=== PATIENT | female | born 1965 | race Caucasian/White ===

== ENCOUNTER 2017-02-11 20:16 | Inpatient (IN) | payer BC ==
[~2017-02-11] VITALS: Ht 180.3 cm; Wt 104.0 kg
[~2017-02-11 20:16] MED LIST: ALEVE220 MG PO; ATENOLOL50 MG PO; BACTRIM DS1 TAB PO; BELVIQ PO; CINNAMON500 M1 PO; DOCUSATE SODIU250 MG PO; GEMFIBROZIL600 MG PO; HUMALOG100 MG/ML SC; HUMULIN 70/30; HYDROMORPHONE HC2 MG PO; INVOKANA300 MG PO; LANTUS SOL100 UNITS/ SC; LEVOTHYROXINE100 MCG PO; LIOTHYRONINE SO5 MCG PO; LOSARTAN POTAS100 MG PO; MELATONIN1 M1; METFORMIN HCL1000 MG PO; METFORMIN HCL500 MG PO; NORCO1 TA1 PO; PERCOCET1 TA4 PO; PRAVASTATIN SOD40 MG; PROGESTERONE200 MG; RANITIDINE HCL150 MG PO; REGLAN5 MG PO; SUPER B-COMPLEX; TOUJEO SOL300 UNIT/M SC; TRESIBA FL100 UNIT/M SC; TYLENOL ARTHRI650 MG PO; VICTOZA18 MG/3 ML; VITAMIN D-35000 UNIT PO; ZOFRAN ODT4 MG PO; ZOFRAN4 MG PO; [UNRECOGNIZED DRUG - OTHER] PO; [UNRECOGNIZED DRUG - OTHER] TOP
--- NOTE | 2017-02-11 21:25 | DIAGNOSTIC IMAGING REPORT ---
PROCEDURE: XR CHEST 1 VIEW INDICATION: SHORTNESS OF BREATH TECHNIQUE: Portable AP view 09:02 p.m. COMPARISON: Chest x-ray 03/22/2015. FINDINGS: Lungs are clear. Heart and mediastinum are normal. Thorax is normal. No significant interval change. IMPRESSION: 1. Negative chest.
--- NOTE | 2017-02-11 23:15 | ED CLINICAL REPORT ---
Clinical Report - Physicians/Mid Levels [facility] [address] [place] [address] 02/11/2017 20:17 Patient: DAVID HUMPHREYS Time Seen: 2029; initial patient contact. Arrived- By private vehicle. Historian- patient and family. HISTORY OF PRESENT ILLNESS Chief Complaint: DYSPNEA. This started past 3 - 4 days and is still present (worsening). It was gradual in onset and has been constant but is not gone now. The dyspnea is severe and is worsened by exertion and is improved by rest. The patient has had a cough and chills. No chest pain or discomfort, calf pain or foot swelling. (episode of nausea and vomiting. reports having lower back pain 2 days ago following episode of coughing + nausea/vomiting. no numbness, weakness, or tingling. No saddle anesthesia, urinary retention, incontinence. also with sore throat with this illness. was given abx for "laryngitis" but can not remember the abx name.). Similar symptoms previously: None. Recent medical care: The patient was seen recently in a clinic. REVIEW OF SYSTEMS The patient has had nausea and vomiting. All systems otherwise negative, except as recorded above. PAST HISTORY See nurses notes. Medications: Tresbia 76 units daily. Victoza 1.8 mg daily. Humalog 6-20 units when eating. Cinnamon 1000 mcg daily. Vitamin D3 1000 IU daily. Qunol 100 mg daily. Biotin 1000 mcg daily. Stress B daily. Methyl guard. Tylenol Arthritis 650 mg QID. Metoclopramide 5 mg BID. C-Biest cream 5 mg/ml daily. Progesterone 200 mg daily. Gemfibrozil 600 mg BId. Pravastatin 40 mg daily. Atenolol 50 mg BID. Losartan 100 mg daily. Belviq 10 mg daily. Metformin ER 500 mg TID. Invokana 300 mg daily. Liothyronine 5 mcg BID. Levothyroxine 125 mcg daily. Belviq Oral. Tresbia. MetFORMIN HCl Oral. Bydureon Subcutaneous. NovoLOG Subcutaneous. Allergies: No Known Drug Allergy. SOCIAL HISTORY Smoker- current status unknown. No alcohol use or drug use. No recent travel. Is a local resident. ADDITIONAL NOTES The nursing notes have been reviewed. PHYSICAL EXAM Vital Signs: 02/11/2017 20:23 BP: 157/75. HR: 114. RR: 39. O2 saturation: 100%. Temp: 98.4 F. FLACC pain scale: 10/10. Hypertensive. Tachycardic. Oxygen saturation normal. Appearance: Alert. Lethargic. Patient in moderate distress. Eyes: Pupils equal, round and reactive to light. Eyes normal inspection. ENT: Ears normal. Nose normal. Pharynx normal. Uvula midline. (dry mucus membranes). Neck: Normal inspection. No jugular venous distention. Neck supple. CVS: Tachycardia. Heart sounds normal. Pulses normal. Respiratory: No respiratory distress. Breath sounds normal. No wheezes, stridor, rales or rhonchi. Abdomen: Soft and nontender. No organomegaly. Skin: Skin warm and dry. Normal skin color. No rash. Normal skin turgor. Extremities: Extremities exhibit normal ROM. No lower extremity edema. Neuro: Oriented X 3. No motor deficit. No sensory deficit. (sleepy). LABS, X-RAYS, AND EKG EKG: No acute ischemia. Regular narrow-complex tachycardia (105). Sinus tachycardia. Normal P waves. Normal MARCO A. Normal QRS complex. Normal axis. Non-specific ST segment / T wave abnormalities. sinus tach. The study has been interpreted contemporaneously. The study has been independently viewed by me. Artifact present. Chest X-ray: (PROCEDURE: XR CHEST 1 VIEW INDICATION: SHORTNESS OF BREATH TECHNIQUE: Portable AP view 09:02 p.m. COMPARISON: Chest x-ray 03/22/2015. FINDINGS: Lungs are clear. Heart and mediastinum are normal. Thorax is normal. No significant interval change. IMPRESSION: 1. Negative chest.). Views: AP (portable). The X-rays were independently viewed by me and interpreted by the radiologist. The X-rays were discussed with the radiologist (via pacs). Laboratory Tests: UA-Culture if indicated: (MIGDALIA: 02/11/2017 21:00) ( MsgRcvd 02/11/2017 22:10) Final results Test Result Flag Units (Reference) URINE COLOR YELLOW URINE APPEARANCE CLEAR URINE GLUCOSE 3+ (NEGATIVE) URINE BILIRUBIN NEGATIVE (NEGATIVE) URINE KETONE 2+ (NEGATIVE) URINE SPECIFIC GRAVITY 1.020 (1.010-1.030) URINE PH 5.0 (5.0-8.0) URINE PROTEIN TRACE (NEGATIVE) URINE UROBILINOGEN 0.2 EU/dL (0.2-1.0) URINE NITRITE NEGATIVE (NEGATIVE) URINE BLOOD TRACE-LYSED (NEGATIVE) URINE LEUK ESTERASE NEGATIVEA (NEGATIVE) URINE RBC 0-1 rbc/hpf (0-1) CATH1+ AMORPHOUSTRANSITIONAL EPITHELIAL CELLS 0-1/HPF URINE WBC 0-1 wbc/hpf (0-1) URINE EPITHELIAL CELLS NONE SEEN EPI/hpf (0-5) URINE BACTERIA FEW (1+) (NONE SEEN) URINE COMMENT CULT NOT INDICATED URINE CULTURES ARE SET-UP BASED ON THE FOLLOWING CRITERIA:POSITIVE NITRITEPOSITIVE LEUKOCYTE ESTERASEGREATER THAN 10 WHITE BLOOD CELLSMODERATE (2+) OR GREATER BACTERIA Urine: (MIGDALIA: 02/11/2017 21:00) ( [facility] 02/11/2017 21:38) Final results Test Result Flag Units (Reference) URINE NEGATIVE ESR: (MIGDALIA: 02/11/2017 21:00) ( [facility] 02/11/2017 22:57) Final results Test Result Flag Units (Reference) SED RATE WESTERGREN 4 mm/hr (0-20) DIFFERENTIAL-MANUAL: (MIGDALIA: 02/11/2017 21:00) ( [facility] 02/11/2017 21:51) Final results Test Result Flag Units (Reference) WHITE BLOOD COUNT 29.0 *H K/uL (4.5-11.5) CRITICAL RESULTS CALLEDCalled to JACOBY 02/11/17 2136Were 2 patient identifiers used? YESWas the result read back? YES RED BLOOD COUNT 5.03 M/uL (4.00-5.20) HEMOGLOBIN 15.0 gm/dL (12.0-16.0) HEMATOCRIT 47.3 H % (36.0-46.0) MEAN CELL VOLUME 94 fL (80-100) MEAN CORPUSCULAR HGB 30 pg (26-34) MEAN CORPUSCULAR HGB CONC 32 g/dL (31-37) RED CELL DISTRIBUTION WIDTH 13.4 % (11.6-14.8) PLATELET COUNT 462 H K/uL (150-400) POLY % 68 % (50-75) BAND % 16 H % (0-8) LYMPH 7 L % (25-40) MONO 6 % (3-14) EOSINOPHIL % 0 % (0-4) BASOPHIL % 0 % (0-2) METAMYELOCYTE % 3 H % (0-1) MYELOCYTE 0 % (0-1) OTHER CELL TYPE 0 RBC MORPHOLOGY NORMAL RBC POP PT with INR: (MIGDALIA: 02/11/2017 21:00) ( [facility]39[facility] Final results Test Result Flag Units (Reference) INR 1.3 H (0.8-1.2) Low Intensity Therapy: INR 1.5-2.0 PT range 18.5-23.1Mod.Intensity Therapy: INR 2.0-3.0 PT range 23.1-31.5High Intensity Therapy: INR 2.5-3.5 PT range 27.4-35.5High Intensity Therapy 2: INR 3.0-4.0 PT range 31.5-39.3 D-DIMER QUANTITATIVE 0.72 H ug/mLFEU (0.27-0.52) The primary value of this quantitative assay relates toits negative predictive value (i.e. exclusion) of pulmonaryembolism/deep vein thrombosis/DIC.Elevated levels of d-dimer may also occur with:, age, cancer, inflammation, liver disease,post-op, infection, hematoma, coronary disease, peripheralarteriopathy, bleeding disorders and thrombolytic treatment.Results should be correlated with other clinical andradiological data.Testing Methodology: Latex Immunoassay Magnesium: (MIGDALIA: 02/11/2017 21:00) ( MsgRcvd 02/11/2017 23:19) Final results Test Result Flag Units (Reference) MAGNESIUM 2.8 H mg/dL (1.8-2.4) Salicylate Level: (MIGDALIA: 02/11/2017 21:00) ( [facility]/11[facility] 22:56) Final results Test Result Flag Units (Reference) SALICYLATE 6.5 mg/dL (2.8-20) [id number]: (MIGDALIA: 02/11/2017 21:00) ( [facility] 02/11/2017 22:56) Final results Test Result Flag Units (Reference) C-REACTIVE PROTEIN 1.3 H mg/dL (0.0-0.9) [id number]: (MIGDALIA: 02/11/2017 21:00) ( [facility] 02/11/2017 22:55) Final results Test Result Flag Units (Reference) FREE T4 (FREE THYROXINE) 1.11 ng/dL (0.78-4.13) Lactate, Serum: (MIGDALIA: 02/11/2017 21:00) ( [facility] 02/11/2017 22:06) Final results Test Result Flag Units (Reference) LACTIC ACID 5.4 H mmol/L (0.4-2.0) CRITICAL RESULTS CALLEDCalled to [facility] RN 02/11/172204Were 2 patient identifiers used? YWas the result read back? Y CMP: (MIGDALIA: 02/11/2017 21:00) ( [facility] 02/11/2017 22:08) Final results Test Result Flag Units (Reference) GLUCOSE 728 *H mg/dL (70-110) CRITICAL RESULTS CALLEDCalled to [facility] ED RN 02/11/177Were 2 patient identifiers used? YWas the result read back? Y BUN 68 H mg/dL (7-18) CREATININE 2.2 H mg/dL (0.6-1.3) Estimated GFR 25.21 mL/min Estimated GFR- 30.56 mL/min Note: Persistent reduction over 3 months in eGFR<60 mL/min/1.73 m2 defines CKD. Patients with eGFR values>=60 mL/min/1.73 m2 may also have CKD if evidence ofpersistent proteinuria. Additional information may be foundat www.kidney.org. SODIUM 135 L mmol/L (136-145) POTASSIUM 5.6 H mmol/L (3.5-5.1) CHLORIDE 92 L mmol/L (98-107) CARBON DIOXIDE 4 *L mmol/L (21-32) CRITICAL RESULTS CALLEDCalled to CARIN QUEEN RN 02/11/17 2208Were 2 patient identifiers used? YWas the result read back? Y CALCIUM 9.6 mg/dL (8.5-10.1) TOTAL PROTEIN 8.0 g/dL (6.4-8.2) ALBUMIN 3.8 g/dL (3.3-5.0) BILIRUBIN, TOTAL 0.6 mg/dL (0.0-1.0) ALKALINE PHOSPHATASE 148 H U/L (46-116) AST (SGOT) 35 U/L (15-37) ALT (SGPT) 48 U/L (12-78) TROPONIN I <0.05 ng/mL (0.00-1.5) TROPONIN REFERENCE RANGE:<0.1 NEGATIVE0.1-1.5 INDETERMINANT>1.5 POSITIVE THYROID STIMULATING HORMONE 0.001 L uIU/mL (0.34-3.74) ABG: (MIGDALIA: 02/11/2017 22:10) ( MsgRcvd 02/11/2017 22:29) Final results Test Result Flag Units (Reference) FIO2 21 % (20-101) ABG MODE OF DELIVERY RA MODIFIED CECILIO TEST POSITIVE? YES ABG RESP RATE SETTINGS 40 /MIN ARTERIAL BLOOD GAS SITE RR ARTERIAL BLOOD GAS pH 6.88 *L (7.35-7.45) ABG PCO2 12.1 *L mmHg (35-45) ABG PO2 134.0 H mmHg (80.0-100.0) ABG BASE EXCESS -29.0 *L mmol/L (-6.0--6.0) ABG HCO3 2.3 *L mmol/L (20.0-26.0) ABG TCO2 2.6 *L mmol/L (24.0-30.0) ABG IzGbV3s 0.0 L mmHg (7.0-14.0) *NOTE: Normal rangeis based on aFIO2 of 21% ABG SAT O2 96.1 % (95.1-100.0) ABG TOTAL HEMOGLOBIN 13.9 g/dL (12.0-16.0) ABG O2 HEMOGLOBIN 95.1 % (95.0-100.0) ABG CARBOXYHEMOGLOBIN 0.3 L % (0.5-1.5) ABG METHEMOGLOBIN 0.7 % (0.4-1.5) ABG RHEMOGLOBIN 3.9 % . PROGRESS AND PROCEDURES Course of Care: the patient is a pleasant 51-year-old female presenting for evaluation of shortness of breath. Patient appears to be extremely sleepy on examination. Patient has a history of diabetes as well as thyroid problems. Patient also reason he started on antibiotics for presumed bacterial infection. At this time differential diagnosis includes pneumonia, urinary tract infection, diabetic ketoacidosis, or thyroid abnormality. Patient also could have significant Robards disturbances from acute metabolic abnormality. Patient will be given IV fluids as well as laboratory studies for a vaginal patient's symptoms. Ordered a urinalysis, TSH, d-dimer, chest x-ray, and other laboratory studies. Patient's workup was remarkable for the findings above. Calculated anion gap and 45. Patient also with severe lactic acidosis. ABG has been ordered. Chest x-ray does not show any signs of acute pneumonia. Urinalysis is also negative. Patient did have a significant abnormality with her TSH. I discussion with the patient's family in regards to the thyroid level. Patient is noted to have a hypothyroid condition is being treated with thyroid medication. 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 We'll monitor closely. Did consider thyroid storm however because of the patient's other electrolyte abnormalities and DKA, would be concerned for the DKA causing the patient's abnormalities at this point. We'll hold patient's thyroid medicationsat this point in time and recheck patient's TSH. Because the patient will be obtaining a IV fluid bolus as well asinsulin bolus with insulin drip, patient was given 60 mg of by mouth potassium for replacement of overall hypokalemia because of the patient's DKA. Patient otherwise noted to have no signs of hypokalemia on EKG. Patient was a slightly elevated and her potassium at 5.6 however do not anticipate any problems with by mouth potassium as the patient will be sore the potassium as needed in addition, the patient is also physiologically hypokalemic and will need potassium replacementonce the insulin has been started. This will likelyreduce the need for IV potassium which could be potentially painful and irritated the patient'sIV site. Discussed with the patient and the family there workup. The emergency department regarding diagnosis and plan of care. Discussed case with the hospitalist who is agreeable to the treatment plan. No further recommendations made. No specific source of infection identified on workup here in emergency department. We'll defer to hospitalist forany further recommendations or treatment. In discussion with the hospitalist, decided to start the patient on antibiotics. At this point in time, the benefits outweigh the risks at this time. patient otherwise without anyfocal signs on my examination. Patient continues to be alert and oriented 3 however does continue to be sleepy. Vital signs of improved while here in the emergency department. No other acute Abnormalities noted. In regards to the patient's back pain, llikely association with the patient's nausea and vomiting episode. Patient likely with lumbar strain. ESR and CRP have been ordered. Patient's sedimentation rate is noted to be normal. CRP is only slightly elevated however it is not more than 2 times upper limit of normal. no concern for infectious etiology of the patient's back At this time and will continue to monitor as an inpatient. Critical care performed (70 minutes). Time is exclusive of separately billable procedures. Time includes: direct patient care, patient reassessment, coordination of patient care, interpretation of data (laboratory data, arterial blood gases and chest xrays), review of patient's medical records, medical consultation, family consultation regarding treatment decisions and documentation of patient care. Disposition: Admitted to the Critical Care Unit. CLINICAL IMPRESSION diabetic ketoacidosis, acute lactic acidosis, acute hyperthyroidism, acute acute kidney injury Acute lower back pain. (Electronically signed by Jj Devlin Dr. 02/15/2017 17:10)
--- NOTE | 2017-02-11 23:15 | ED ORDER SUMMARY ---
..... Patient: DAVID HUMPHREYS OrderSheet [facility] VisitID: [id number] [place] [address] 51y, F Registration Date/Time: 02/11/2017 ORDER SHEET Weight: 95.7 kg (stated) Allergies: No Known Drug Allergy GENERAL ORDERS: Chest 1V Urgent (20:35 02/11/2017 Araceli Cedillo) (Ack 20:39 CHagerty ER Special Services Agent) (21:22 MCampbell) (21:22 MCook R.N.) Software Development Intern (Continuous) (Respiratory Distress) (20:35 02/11/2017 Araceli Cedillo) (20:47 MCook R.N.) (20:51 TBowen R.N.) CBC w Diff Urgent (20:36 02/11/2017 Araceli Cedillo) (Ack 20:39 CHagerty [facility] Special Services Agent) (20:51 MCook R.N.) CMP Urgent (20:36 02/11/2017 Araceli Cedillo) (Ack 20:39 [facility] Special Services Agent) (20:51 MCook R.N.) UA-Culture if indicated Urgent (20:36 02/11/2017 Araceli Cedillo) (Ack 20:39 [facility] Special Services Agent) (21:02 DDean R.N.) PT with INR Urgent (20:36 02/11/2017 Araceli Cedillo) (Ack 20:39 [facility] Special Services Agent) (20:51 MCook R.N.) D-Dimer Urgent (20:36 02/11/2017 Araceli Cedillo) (Ack 20:39 CHagerty [facility] Special Services Agent) (20:51 MCook R.N.) Troponin-I Urgent (20:36 02/11/2017 Araceli Cedillo) (Ack 20:39 CHagerty [facility] Special Services Agent) (20:51 MCook R.N.) Lactate, Serum Urgent (20:36 02/11/2017 Araceli Cedillo) (Ack 20:39 CHagerty [facility] Special Services Agent) (21:14 MCook R.N.) TSH Urgent (20:36 02/11/2017 Araceli Cedillo) (Ack 20:39 CH[facility] Special Services Agent) (20:51 MCook R.N.) Urine Urgent (20:36 02/11/2017 Araceli Cedillo) (Ack 20:39 CHagerty [facility] Special Services Agent) (21:02 DDean R.N.) Pulse oximeter (20:36 02/11/2017 Araceli Cedillo) (20:47 MCook R.N.) (20:51 TBowen R.N.) EKG - ER Stat (20:36 02/11/2017 Araceli Cedillo) (Ack 20:39 [facility] Special Services Agent) (20:47 MCook R.N.) (20:48 LMuller) Blood Culture (Yes) (patient does not recall) Urgent (21:38 02/11/2017 Araceli Cedillo) (Ack 21:40 [facility] Special Services Agent) (22:17 MCook R.N.) Blood Culture (No) (N/A) Urgent (22:00 02/11/2017 MCook R.NAshley verbal order read back to Araceli Cedillo) (22:01 MCook R.N.) (Cancelled: Duplicate Order22:01 MCook R.N.) Verbal order read back and verified ABG (G) Urgent (22:10 02/11/2017 Araceli Cedillo) (Ack 22:18 [facility] Special Services Agent) (22:36 [facility] Special Services Agent) FT4(Free T4) Urgent (22:27 02/11/2017 Araceli Cedillo) (Ack 22:36 [facility] Special Services Agent) (22:36 [facility] Special Services Agent) CRP Urgent (22:28 02/11/2017 Araceli Cedillo) (Ack 22:36 [facility] Special Services Agent) (22:36 [facility] Special Services Agent) ESR Urgent (22:28 02/11/2017 Araceli Cedillo) (Ack 22:36 [facility] Special Services Agent) (22:36 [facility] Special Services Agent) Salicylate Level Urgent (22:35 02/11/2017 Araceli Cedillo) (Ack 22:36 [facility] Special Services Agent) (23:29 [facility] Special Services Agent) - (T3) (22:56 02/11/2017 Araceli Cedillo) (23:29 [facility] -- (serum phosphate) (22:57 02/11/2017 Araceli Cedillo) (23:29 [facility] Magnesium Urgent (22:57 02/11/2017 Araceli Cedillo) (23:27 [facility] ER Special Services Agent) PCT (Procalcitonin) Urgent (22:58 02/11/2017 Araceli Cedillo) (23:27 [facility]) MEDICATION ORDERS: Potassium Chloride PO 60 meq (NOW) (22:32 02/11/2017 Araceli Cedillo) (23:47 MCook R.N.) Famotidine PO 20 mg (NOW) (23:18 02/11/2017 Della R.NAshley verbal order read back to Araceli Cedillo) (23:19 Slickk R.N.) IV FLUIDS: IV NS : initial bolus 1000 mL (1000 mL/hr), then none - for X1 (NOW) (20:35 02/11/2017 Araceli Cedillo) (21:14 MCook R.N.) Insulin Reg Drip IV : initial bolus 8 units, then 8 units/hr for 8h (HIGH ALERT MEDICATION, NOW) (22:54 02/11/2017 Araceli Cedillo) (23:49 MCmorrok R.N.) IV NS : initial bolus 1000 mL (1000 mL/hr), then none - for X1 (NOW) (22:56 02/11/2017 Araceli Cedillo) (23:49 Slickk R.N.) Zofran IV 4 mg (NOW) (23:18 02/11/2017 Della R.N. verbal order read back to Araceli Cedillo) (23:19 Slickk R.N.) Morphine IV 4 mg (NOW) (01:08 02/12/2017 Della RAshleyNAshley verbal order read back to Araceli Cedillo) (1:21 MCook R.N.) Zofran IV 4 mg (NOW) (01:09 02/12/2017 Della R.NAshley verbal order read back to Araceli Cedillo) (1:22 MCook R.N.) Sodium Bicarbonate IV 100 meq (in 400 mls of D5W) (01:22 02/12/2017 Della Clarke verbal order read back to Aure LEYVA) (1:35 Della Clarke) Verbal order read back and verified Levaquin IV 750 mg/150 mL (NOW) (01:23 02/12/2017 Della Clarke verbal order read back to Aure LEYVA) (1:24 Della Clarke) Verbal order read back and verified ORDER SHEET NOTES: [Electronically signed by Ji Elizabeth R.N. (02:02/12/2017)] [Electronically signed by Jj Devlin Dr. (17:10 02/15/2017)] [Electronically locked/signed by Ji Elizabeth R.N. (02:02/12/2017)]
--- NOTE | 2017-02-11 23:15 | ED NURSING NOTES ---
Clinical Report - Nurses [facility] [address] [place] [address] 02/11/2017 20:17 Patient: DAVID HUMPHREYS TRIAGE Triage time 20:Feb 11 2017. Acuity: LEVEL 3. Chief Complaint: SHORTNESS OF BREATH and DIFFICULTY BREATHING. SEPSIS SCREEN: Sepsis Screen: heart rate greater than 90, respiratory rate greater than 20 and acute mental status change. --20:28 Kevin Obregon R.N. 20:23 02/11/17. BP: 157/75. HR: 114. RR: 39. O2 saturation: 100% on room air. Temp: 98.4 F. FLACC pain scale: 10/10. --20:28 Kevin Obregon R.N. <<STRICKEN ENTRY-- Weight: 81.6 kg estimated. Height/Length: 70 inches Estimated. BMI: 25.8. --END STRIKE>> Correction --20:23 Kevin Obregon R.N.. Weight: 95.7 kg stated. --00:00 Kevin Obregon R.N.. Height/Length: 70 inches Estimated. BMI: 30.3. --02:01 Ji Elizabeth R.N. Medications NovoLOG Subcutaneous. --20:25 Kevin Obregon R.N. Bydureon Subcutaneous. --20:25 Kevin Obregon R.N. MetFORMIN HCl Oral. --20:25 Kevin Obregon R.N. Tresbia. --20:25 Kevin Obregon R.N. Belviq Oral. --21:24 Kevin Obregon R.N. Levothyroxine 125 mcg daily. --21:26 Kevin Obregon R.N. Liothyronine 5 mcg BID. --21:26 Kevin Obregon R.N. Invokana 300 mg daily. --21:27 Kevin Obregon R.N. Metformin ER 500 mg TID. --21:27 Kevin Obregon R.N. Belviq 10 mg daily. --21: Kevin Obregon R.N. Losartan 100 mg daily. --21: Kevin Obregon R.N. Atenolol 50 mg BID. --21: Kevin Obregon R.N. Pravastatin 40 mg daily. --21: Kevin Obregon R.N. Gemfibrozil 600 mg BId. --21: Kevin Obregon R.N. Progesterone 200 mg daily. --21: Kevin Obregon R.N. C-Biest cream 5 mg/ml daily. --21: Kevin Obregon R.N. Metoclopramide 5 mg BID. --21: Kevin Obregon R.N. Tylenol Arthritis 650 mg QID. --21: Kevin Obregon R.N. Methyl guard. --21: Kevin Obregon R.N. Stress B daily. --21: Kevin Obregon R.N. Biotin 1000 mcg daily. --21: Kevin Obregon R.N. Qunol 100 mg daily. --21: Kevin Obregon R.N. Vitamin D3 1000 IU daily. --21: Kevin Obregon R.N. Cinnamon 1000 mcg daily. --21: Kevin Obregon R.N. Humalog 6-20 units when eating. --21: Kevin Obregon R.N. Victoza 1.8 mg daily. --21: Kevin Obregon R.N. Tresbia 76 units daily. --21:29 Kevin Obregon R.N. Allergies No Known Drug Allergy. --20:25 Kevin Obregon R.N. History Arrived by private vehicle. Historian: family. Accompanied by family. This started today. ( Pt has been on antibiotics for bacterial laryngitis per PCP. Pt presents today with dyspnea and reported back pain.). PAST MEDICAL HX: Diabetes mellitus. Hypertension. No history of asthma, chronic obstructive pulmonary disease or congestive heart failure. Immunizations: up-to-date. Denies current : uterine ablation. SURGERY HX: ( uterine ablation). SOCIAL HX: Heavy tobacco smoker- less than 1 pack per day. No infectious disease exposure. FALL RISK ASSESSMENT: Fall risk assessment completed. No fall risk identified. NUTRITIONAL RISK ASSESSMENT: The nutritional risk assessment revealed no deficiencies. FUNCTIONAL ASSESSMENT: Functional assessment: no impairments noted. LEARNING NEEDS ASSESSMENT: The learning needs assessment revealed no barriers. SKIN INTEGRITY ASSESSMENT: Skin integrity risk assessment completed. No skin integrity risk identified. --20:28 Kevin Obregon R.N. PROBLEMS: Cellulitis. Abscess. Diabetes Mellitus. Hypothyroidism. Hypertension. Hypercholesterolemia. --20:26 Kevin Obregon R.N. ADDITIONAL SURGERIES: Bunionectomy. Foot. Oophorectomy. Septoplasty. Shoulder Surgery. Toes. Tonsillectomy. Tubal Ligation. --20:26 Kevin Obregon R.N. Interventions ID band on patient. To treatment room. --20:28 Kevin Obregon R.N. PHYSICAL ASSESSMENT To room via wheelchair. GENERAL / NEURO / PSYCH: Appears anxious and in distress. Decreased awareness. RESPIRATORY: Severe respiratory distress. She is unable to speak. Accessory muscle use. Chest nontender. Breath sounds within normal limits. CVS: Cardiac rhythm: sinus tachycardia. GI / : Bowel sounds within normal limits. SKIN: Skin is warm. Skin is diaphoretic. ( Pt is flushed). --20:30 Kevin Obregon R.N. NURSING PROGRESS NOTES The plan of care for this patient has been created. Monitoring of patient in place. Head of bed elevated. Reassurance given. Patient identifiers checked. Call light placed in reach. Side rails up x 1. Bed placed in lowest position. Patient ready for evaluation- ED physician notified. --20:30 Kevin Obregon R.N. EKG time: (2048). EKG was performed by a tech and shown to the ED physician. --20:49 Марина Gilmore Finger stick glucose: > 500, will check again. --20:52 Kevin Obregon R.N. ( Pt is tachypneic, tachycardic, decreased LOC, does respond in 1-word answers, mostly to family, monitoring in place.). --20:53 Kevin Obregon R.N. 20:53 02/11/2017 Site #1 started via IV in the left antecubital space with an 20g angiocath, with aseptic technique and good blood return; one attempt. Blood drawn: rainbow set. Labeled in the presence of the patient and sent to the lab. Saline lock flushed with 10 mL saline. --20:53 Kevin Obregon R.N. Finger stick glucose: Recheck = >500; performed by nurse. --21:04 Kevin Obregon R.N. Patient ID band checked for patient name and birthdate: family confirmed. Catheterized urine collected with return of yellow-colored clear urine; sample sent to lab for urinalysis, culture, drug screen and HCG. Specimen labeled in the presence of the patient. --21:14 Kevin Obregon R.N. 21:13 02/11/17. BP: 134/67. HR: 103. RR: 40. O2 saturation: 100% on room air. FLACC pain scale: 8/10. --21:14 Kevin Obregon R.N. 21:04 02/11/2017 Started bag #1 1000 mL IV Fluids IV NS (Saline); bolus of 1000 mL wide open via site #1. Allergies verified and confirmed 5 rights. IV patency established. IV site checked: no pain, redness, or swelling. IV flushed thoroughly pre- and post-medication administration. Completed per protocol. --21:14 Kevin Obregon R.N. Portable chest x-ray performed. --21:21 Kevin Obregon R.N. Critical value relayed to ED by LAB. Critical value received by NATHALIA Brown. WBC: 29. Critical value read back. Verified lab result and patient ID. ED physician notifed of critical value (Dr. Devlin). Orders were received. ( Pt resting in bed, family at bedside, Pt remains tachypneic, altered LOC but responsive.). --21:42 Kevin Obregon R.N. Critical value relayed to ED by LAB. Critical value received by Angela Hernández RN. C02: 4. Glucose: 728. Lactate level: 5.4. Critical value read back. Verified lab result and patient ID. ED physician notifed of critical value. --22:16 Kevin Obregon R.N. 22:15 02/11/17. BP: 120/53. HR: 106. RR: 17. O2 saturation: 100% on room air. FLACC pain scale: 8/10. --22:16 Kevin Obregon R.N. 22:17 02/11/2017 IV Fluids IV NS Discontinued: bag #1 infused. Total amount infused: 1000 mL. IV patency established. IV site checked: no pain, redness, or swelling. IV flushed thoroughly. --22:17 Kevin Obregon R.N. 23:04 02/11/2017 Zofran (Ondansetron HCl) IVP 4 mg given over 2 minute(s) via site #1. Allergies verified and confirmed 5 rights. IV patency established. IV site checked: no pain, redness, or swelling. IV flushed thoroughly pre- and post-medication administration. IVP given by RN. --23:19 Kevin Obregon R.N. 23:04 02/11/2017 Famotidine PO Tablets 20 mg given. Allergies verified and confirmed 5 rights. --23:19 Kevin Obregon R.N. 23:40 02/11/17. BP: 127/62. HR: 108. RR: 36. O2 saturation: 100% on room air. FLACC pain scale: 05/20. --23:40 Kevin Obregon R.N. ( Hospitalist in to see Pt, discussed admission POC. Family at bedside. Pt is alert, lethargic, still tachypneic, reporting pain to her midline back. VSS, started Pt's insulin gtt and NS bolus. Pt is resting, stable, preparing for transport upstairs.). --23:47 Kevin Obregon R.N. 23:32 02/11/2017 Potassium Chloride (Potassium Chloride ER) PO Tablets 60 meq given. Allergies verified and confirmed 5 rights. --23:47 Kevin Obregon R.N. 23:48 02/11/2017 Started of Insulin Reg Drip IV in bag #1 100 mL; bolus of 8 unit over 1 minute(s) then at 8 unit/hr over 8 hour(s) via site #1 via IV pump. Allergies verified and confirmed 5 rights. IV patency established. IV site checked: no pain, redness, or swelling. IV flushed thoroughly pre- and post-medication administration. Completed per protocol (Double-checked Insulin gtt and bolus with other RNElba.). --23:49 Kevin Obregon R.N. 23:49 02/11/2017 Started bag #2 1000 mL IV Fluids IV NS (Saline); bolus of 1000 mL wide open via site #1. Allergies verified and confirmed 5 rights. IV patency established. IV site checked: no pain, redness, or swelling. IV flushed thoroughly pre- and post-medication administration. Completed per protocol. --23:49 Kevin Obregon R.N. ( [facility] orders in by Dr. Flanagan. He has requested that Pt receive ordered Bicarb and Levaquin down in ED while we wait for a bed upstairs.). --00:17 Kevin Obregon R.N. 00:21 02/12/2017 Site #2 started via IV in the right antecubital space with an 20g angiocath, with aseptic technique and good blood return; one attempt. Saline lock flushed with 10 mL saline. --00:21 Tricia Steinberg Finger stick glucose: > 500; venous sample being sent; performed by nurse. --00:30 Kevin Obregon R.N. ( Per hospitalist, hourly accuchecks.). --00:30 Kevin Obregon R.N. ( Unable to obtain venous BG, lab notified to come draw.). --00:45 Kevin Obregon R.N. Patient and family informed about reason for wait (CCU to call when bed available.). ( Pt is resting in, vitals stable, family at bedside.). --01:04 Kevin Obregon R.N. 00:59 02/12/2017 Started 750 mg of Levaquin (Levofloxacin) IVPB in bag #1 150 mL; at 150 mL/hr over 1 hour(s) via site #2; Allergies verified and confirmed 5 rights. IV patency established. IV site checked: no pain, redness, or swelling. IV flushed thoroughly pre- and post-medication administration. Completed per protocol. --01:24 Kevin Obregon R.N. 01:02/12/2017 Potassium Chloride PO Response: no adverse reaction. --01:08 Kevin Obregon R.N. 01:02/12/2017 Famotidine PO Response: no adverse reaction. --01:08 Kevin Obregon R.N. 01:08 02/12/2017 Zofran IVP Response: no adverse reaction. --01:08 Kevin Obregon R.N. 01:21 02/12/2017 Morphine IVP 4 mg given over 4 minute(s) via site #1. Allergies verified, confirmed 5 rights and sedative warning given to the patient and patient's family. IV patency established. IV site checked: no pain, redness, or swelling. IV flushed thoroughly pre- and post-medication administration. IVP given by RN. --01:21 Kevin Obregon R.N. 01:22 02/12/2017 Zofran (Ondansetron HCl) IVP 4 mg given over 2 minute(s) via site #1. Allergies verified and confirmed 5 rights. IV patency established. IV site checked: no pain, redness, or swelling. IV flushed thoroughly pre- and post-medication administration. IVP given by RN. --01:22 Kevin Obregon R.N. ( RTT at bedside obtaining repeat ABG.). --01:34 Kevin Obregon R.N. 01:35 02/12/2017 Sodium Bicarbonate IVP 100 meq given over 2 hour(s) via site #1. Allergies verified and confirmed 5 rights. IV patency established. IV site checked: no pain, redness, or swelling. IV flushed thoroughly pre- and post-medication administration. IVP given by RN. --01:35 Kevin Obregon R.N. Care transferred and report given (to NATHALIA Toledo). --01:49 Kevin Obregon R.N. ( Report called to floor (Lety CCU RN) to provide her with complete report.). --01:49 Kevin Obregon R.N. 01:50 02/12/17. BP: 94/40. HR: 110. O2 saturation: 100% on room air. --01:52 Kevin Obregon R.N. DISPOSITION / DISCHARGE Report was given to a nurse via a phone call. Report included patient's care, treatment, medications, reviewed medication reconcilliation, and condition (including any recent changes or anticipated changes). All questions were answered. Report was acknowledged and care was transferred. --01:50 Kevin Obregon R.N. Admitted to the Critical Care Unit. Transferred (01:59). Transported via stretcher by nurse with monitor and IV. Report was given to a nurse via a phone call. Report included patient's care, treatment, medications, reviewed medication reconcilliation, and condition (including any recent changes or anticipated changes). All questions were answered. Report was acknowledged. (Report given by Kevin Angel RN). Bed obtained and ready. Patient's personal items include: shirt and pants; items were transported with the patient. --02:00 Ji Elizabeth R.N. Departure time: 02:00. --02:00 Ji Elizabeth R.N. 01:55 02/12/17. BP: 104/70. HR: 110. O2 saturation: 100% on room air. --02:01 Ji Elizabeth R.N. Locked/Released at 02/12/2017 2:01 by Ji Elizabeth R.N.
--- NOTE | 2017-02-11 23:15 | ED ORDER SUMMARY ---
..... Patient: DAVID HUMPHREYS OrderSheet [facility] VisitID: [id number] [place] [address] 51y, F Registration Date/Time: 02/11/2017 ORDER SHEET Weight: 95.7 kg (stated) Allergies: No Known Drug Allergy GENERAL ORDERS: Chest 1V Urgent (20:35 02/11/2017 Araceli Cedillo) (Ack 20:39 CHagerty ER Custom Framing Specialist) (21:22 MCampbell) (21:22 MCook R.N.) Security Nurse (Continuous) (Respiratory Distress) (20:35 02/11/2017 Araceli Cedillo) (20:47 MCook R.N.) (20:51 TBowen R.N.) CBC w Diff Urgent (20:36 02/11/2017 Araceli Cedillo) (Ack 20:39 CHagerty ER Custom Framing Specialist) (20:51 MCook R.N.) CMP Urgent (20:36 02/11/2017 Araceli Cedillo) (Ack 20:39 CHagerty ER Custom Framing Specialist) (20:51 MCook R.N.) UA-Culture if indicated Urgent (20:36 02/11/2017 Araceli Cedillo) (Ack 20:39 CH[facility]ty ER Custom Framing Specialist) (21:02 DDean R.N.) PT with INR Urgent (20:36 02/11/2017 Araceli Cedillo) (Ack 20:39 CHagerty ER Custom Framing Specialist) (20:51 MCook R.N.) D-Dimer Urgent (20:36 02/11/2017 Araceli Cedillo) (Ack 20:39 CHagerty ER Custom Framing Specialist) (20:51 MCook R.N.) Troponin-I Urgent (20:36 02/11/2017 Araceli Cedillo) (Ack 20:39 CHagerty ER Custom Framing Specialist) (20:51 MCook R.N.) Lactate, Serum Urgent (20:36 02/11/2017 Araceli Cedillo) (Ack 20:39 CHagerty ER Custom Framing Specialist) (21:14 MCook R.N.) TSH Urgent (20:36 02/11/2017 Araceli Cedillo) (Ack 20:39 CHagerty ER Custom Framing Specialist) (20:51 MCook R.N.) Urine Urgent (20:36 02/11/2017 Araceli Cedillo) (Ack 20:39 CHagerty ER Custom Framing Specialist) (21:02 DDean R.N.) Pulse oximeter (20:36 02/11/2017 Araceli Cedillo) (20:47 MCook R.N.) (20:51 TBowen R.N.) EKG - ER Stat (20:36 02/11/2017 Araceli Cedillo) (Ack 20:39 CHagerty ER Custom Framing Specialist) (20:47 MCook R.N.) (20:48 LMuller) Blood Culture (Yes) (patient does not recall) Urgent (21:38 02/11/2017 Araceli Cedillo) (Ack 21:40 CHagerty ER Custom Framing Specialist) (22:17 MCook R.N.) Blood Culture (No) (N/A) Urgent (22:00 02/11/2017 MCook R.NAshley verbal order read back to Araceli Cedillo) (22:01 MCook R.N.) (Cancelled: Duplicate Order22:01 MCook R.N.) Verbal order read back and verified ABG (G) Urgent (22:10 02/11/2017 Araceli Cedillo) (Ack 22:18 CHagerty ER Custom Framing Specialist) (22:36 CHagerty ER Custom Framing Specialist) FT4(Free T4) Urgent (22:27 02/11/2017 Araceli Cedillo) (Ack 22:36 CHagerty ER Custom Framing Specialist) (22:36 CHagerty ER Custom Framing Specialist) CRP Urgent (22:28 02/11/2017 Araceli Cedillo) (Ack 22:36 CH[facility] ER Custom Framing Specialist) (22:36 CHagerty ER Custom Framing Specialist) ESR Urgent (22:28 02/11/2017 Araceli Cedillo) (Ack 22:36 CHagerty ER Custom Framing Specialist) (22:36 [facility] ER Custom Framing Specialist) Salicylate Level Urgent (22:35 02/11/2017 Araceli Cedillo) (Ack 22:36 [facility] Custom Framing Specialist) (23:29 [facility] Custom Framing Specialist) - (T3) (22:56 02/11/2017 Araceli Cedillo) ([facility] -- (serum phosphate) (22:57 02/11/2017 Araceli Cedillo) (23:29 [facility] Magnesium Urgent (22:57 02/11/2017 Araceli Cedillo) (23:27 [facility] ER Custom Framing Specialist) PCT (Procalcitonin) Urgent (22:58 02/11/2017 Araceli Cedillo) (23:27 [facility] MEDICATION ORDERS: Potassium Chloride PO 60 meq (NOW) (22:32 02/11/2017 Araceli Cedillo) (23:47 MCook R.N.) Famotidine PO 20 mg (NOW) (23:18 02/11/2017 Della R.NAshley verbal order read back to Araceli Cedillo) (23:19 Slickk R.N.) IV FLUIDS: IV NS : initial bolus 1000 mL (1000 mL/hr), then none - for X1 (NOW) (20:35 02/11/2017 Araceli Cedillo) (21:14 MCook R.N.) Insulin Reg Drip IV : initial bolus 8 units, then 8 units/hr for 8h (HIGH ALERT MEDICATION, NOW) (22:54 02/11/2017 Araceli Cedillo) (23:49 MCmorrok R.N.) IV NS : initial bolus 1000 mL (1000 mL/hr), then none - for X1 (NOW) (22:56 02/11/2017 Araceli Cedillo) (23:49 Slickk R.N.) Zofran IV 4 mg (NOW) (23:18 02/11/2017 Della R.N. verbal order read back to Araceli Cedillo) (23:19 Slickk R.N.) Morphine IV 4 mg (NOW) (01:08 02/12/2017 Della RAshleyNAshley verbal order read back to Araceli Cedillo) (1:21 MCook R.N.) Zofran IV 4 mg (NOW) (01:09 02/12/2017 Della R.NAshley verbal order read back to Araceli Cedillo) (1:22 MCook R.N.) Sodium Bicarbonate IV 100 meq (in 400 mls of D5W) (01:22 02/12/2017 Della Clarke verbal order read back to Aure LEYVA) (1:35 Della Clarke) Verbal order read back and verified Levaquin IV 750 mg/150 mL (NOW) (01:23 02/12/2017 Della Clarke verbal order read back to Aure LEYVA) (1:24 Della Clarke) Verbal order read back and verified ORDER SHEET NOTES: [Electronically signed by Ji Elizabeth R.N. (02:02/12/2017)] [Electronically signed by Jj Devlin Dr. (17:10 02/15/2017)] [Electronically locked/signed by Ji Elizabeth R.N. (02:02/12/2017)]
--- NOTE | 2017-02-11 23:42 | Progress Note ---
Subjective General Admission History and Physical Examination Patient Name: Barb Mays Admission Date: February 11, 2017 Primary Care Provider: Gary Vela M.D. Attending Physician: Mahin Myers M.D. Admitting Physician: Zack Flanagan M.D. Code Status: FULL CODE Room: 301 Status: Inpatient, CCU SUBJECTIVE Historian: Patient and family Reliability: Good Chief Complaint: Shortness of breath, difficulty breathing, uncontrolled blood sugar History of Present Illness: The patient is a 51-year-old white female with a significant past medical history of diabetes mellitus, hypothyroidism, hypertension, hyperlipidemia, who presented to [facility] emergency department on the day of admission secondary to the above chief complaint. [facility] ER evaluation was consistent with diabetic ketoacidosis, rule out sepsis, rule out pneumonia. Secondary to the above the patient was admitted by Zack Flanagan M.D. for further evaluation and treatment. PAST MEDICAL HISTORY Illnesses: 1. Diabetes mellitus-insulin requiring 2. Hypertension 3. Hyperlipidemia 4. Hypothyroidism Allergies: 1. No known drug allergies Medications: 1. NovoLog insulin-sliding scale 2. Metformin 500 mg by mouth 3 times a day 3. Levothyroxine 0.125 mg by mouth daily 4. Liothyronine 5 mcg by mouth twice a day 5. Invokana 300 mg by mouth daily 6. Losartan 100 mg by mouth daily 7. Atenolol 50 mg by mouth twice a day 8. Pravastatin 40 mg by mouth daily 9. Gemfibrozil 600 mg by mouth twice a day 10. Progesterone 200 mg by mouth daily 11. Reglan 5 mg by mouth twice a day 12. Tresiba 76 units subcutaneous daily 13. Bydureon 2 mg subcutaneous weekly 14. Belviq 10 mg by mouth daily 15. Victoza 1.8 mg subcutaneous daily Surgery: 1. Tubal ligation 2. Foot surgery 3. 3. Skin cancer removal 4. Shoulder surgery 5. Hand surgery Injuries: 1. No significant Hospitalizations: 1. For above surgery and medical problems FAMILY HISTORY Parents: Noncontributory SOCIAL HISTORY 1. Marital Status: 2. Cheondoism: Confucianism-Zoroastrianism 3. Education: High school 4. 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 Occupational health exposures: Loud noises, heavy lifting HABITS 1. Tobacco: Cigarettes 10-15 pack years, continues to smoke 0.25 to 0.5 packs per day 2. Drugs: None 3. Alcohol: None 4. Caffeine: Coffee 2-3 cups per day, drinks 2 cups per day. HEALTH SUPERVISION Item/Test 1.. Not reviewed IMMUNIZATIONS: 1. Pneumococcal: Unknown 2. Influenza: Unknown 3. Tetanus: Unknown ADVANCED DIRECTIVES: 1. Living well: No 2. POLST: No 3. Code Status: FULL CODE 4. Durable Power Emergency Room Doctor Health care: He has 5. Donor card: Yes REVIEW OF SYSTEMS Remarkable for those things stated in the history of present illness and past medical history. Seventeen point review of system completed with the following notable findings: General: Fatigue, pain, weight change, weakness Eyes: Blurred vision Nose: Recurrent sinus pain/infections Throat: Hoarseness, swallowing, sore throat, difficulty swallowing Respiratory: Shortness of breath, cough, wheezing Cardiovascular: Chest tightness, rapid heart rate, hypertension, muscle pain with walking, shortness of breath when lying flat, shortness of breath with exertion Genitourinary: Nocturia Gastrointestinal: Nausea and vomiting, reflux/heartburn Musculoskeletal: Joint stiffness, joint pain, muscle pain/cramping, neck ache Endocrine: Diabetes mellitus, hypothyroidism, excessive thirst/urination Psychological: Depression, difficulty sleeping Physical Exam General Appearance Cooperative, Mild distress, Slightly lethargic HEENT Atraumatic, PERRLA, EOMI, dry mucous membranes Lungs Normal air movement, Right basilar rales Neck Supple, No JVD Cardiovascular Normal S1 and S2, No murmurs, gallops, rubs, Tachycardic Abdomen Normal bowel sounds, Soft, No tenderness Extremities No cyanosis, No clubbing, No edema, Normal pulses Neurological Cranial nerves intact, Strength 5/5 x4 ext's, No lateralizing signs , slightly lethrgic Psych/Mental Status Mental status normal LAB Results Laboratory Tests 02/11 02/11 02/11 02/11 02/11 [id number] Blood Gas Sample Site RR Total CO2 (24.0 - 30.0 mmol/L) 2.6 ABG pH (7.35 - 7.45) 6.88 ABG pCO2 at Pt Temp (35 - 45 mmHg) 12.1 ABG pO2 at Pt Temp (80.0 - 100.0 mmHg) 134.0 ABG HCO3 (20.0 - 26.0 mmol/L) 2.3 ABG O2 Sat Calc/Kiko (95.1 - 100.0 %) 96.1 ABG Base Excess (-6.0 - -6.0 mmol/L) -29.0 ABG Reduced Hgb (%) 3.9 ABG Carboxyhemoglobin (0.5 - 1.5 %) 0.3 ABG Methemoglobin (0.4 - 1.5 %) 0.7 Nico Test YES Other Total Hgb (12.0 - 16.0 g/dL) 13.9 A-a O2 Gradient (7.0 - 14.0 mmHg) 0.0 Hgb O2 Saturation (95.0 - 100.0 %) 95.1 Respiration Rate (/MIN) 40 Vent Mode RA FiO2 (20 - 101 %) 21 Chemistry Lactic Acid (0.4 - 2.0 mmol/L) 5.4 Plasma Magnesium (1.8 - 2.4 mg/dL) 2.8 Procalcitonin Pending Free T4 Calculated (0.78 - 4.13 ng/dL) 1.11 04 02/11 2100 2100 Chemistry Plasma Sodium (136 - 145 mmol/L) 135 Plasma Potassium (3.5 - 5.1 mmol/L) 5.6 Plasma Chloride (98 - 107 mmol/L) 92 CO2 (Enzymatic) (21 - 32 mmol/L) 4 BUN (7 - 18 mg/dL) 68 Creatinine (0.6 - 1.3 mg/dL) 2.2 Est GFR ( Amer) (mL/min) 30.56 Est GFR (Non-Af Amer) (mL/min) 25.21 Glucose (70 - 110 mg/dL) 728 Plasma Calcium (8.5 - 10.1 mg/dL) 9.6 Total Bilirubin (0.0 - 1.0 mg/dL) 0.6 AST (15 - 37 U/L) 35 ALT (12 - 78 U/L) 48 Alkaline Phosphatase (46 - 116 U/L) 148 Troponin (0.00 - 1.5 ng/mL) <0.05 C-Reactive Protein (0.0 - 0.9 mg/dL) 1.3 Total Protein (6.4 - 8.2 g/dL) 8.0 Albumin (3.3 - 5.0 g/dL) 3.8 TSH 3rd Generation (0.34 - 3.74 uIU/mL) 0.001 Coagulation INR (0.8 - 1.2) 1.3 D-Dimer, Quantitative (0.27 - 0.52 ug/mLFEU) 0.72 Hematology WBC (4.5 - 11.5 K/uL) 29.0 RBC (4.00 - 5.20 M/uL) 5.03 Hgb (12.0 - 16.0 gm/dL) 15.0 Hct (36.0 - 46.0 %) 47.3 MCV (80 - 100 fL) 94 MCH (26 - 34 pg) 30 RDW (11.6 - 14.8 %) 13.4 Neut % (Auto) (50 - 75 %) 68 Lymph % (Auto) (25 - 40 %) 7 [place] % (Auto) (3 - 14 %) 6 Eos % (Auto) (0 - 4 %) 0 Baso % (Auto) (0 - 2 %) 0 Band Neutrophils % (0 - 8 %) 16 Metamyelocytes % (0 - 1 %) 3 Myelocytes (0 - 1 %) 0 Other Cell Type 0 Plt Count, EDTA (150 - 400 K/uL) 462 RBC Morphology NORMAL RBC POP PUBS MCHC (31 - 37 g/dL) 32 ESR Westergren (0 - 20 mm/hr) 4 Toxicology Salicylates (2.8 - 20 mg/dL) 6.5 Urines Urine Color YELLOW Urine Appearance CLEAR Urine pH (5.0 - 8.0) 5.0 Ur Specific [place] (1.010 - 1.030) 1.020 Urine Protein (NEGATIVE) TRACE Urine Ketones (NEGATIVE) 2+ Urine Blood (NEGATIVE) TRACE-LYSED Urine Nitrite (NEGATIVE) NEGATIVE Urine Bilirubin (NEGATIVE) NEGATIVE Urine Urobilinogen (0.2 - 1.0 EU/dL) 0.2 Ur Leukocyte Esterase (NEGATIVE) NEGATIVEA Urine RBC (0 - 1 rbc/hpf) 0-1 Urine WBC (0 - 1 wbc/hpf) 0-1 Ur Epithelial Cells (0 - 5 EPI/hpf) NONE SEEN Urine Bacteria (NONE SEEN) FEW (1+) Urine Glucose (NEGATIVE) 3+ Urine Test NEGATIVE Urine Comment CULT NOT INDICATED 02/11 2010 Chemistry Phosphorus Pending Microbiology Date/Time Procedure - Status Source Growth 02/11 2155 Blood Culture - RECD BLOOD 02/11 2150 Blood Culture - RECD BLOOD Imaging Chest X-Ray IMPRESSION: 1. Negative chest. Dictated by: TRAY MEADOWS MD D: VICKY;02/11/171 Assessment and Plan Problem List 1. Diabetic keto-acidosis Plan -Patient presents with severe diabetic ketoacidosis -Severe acidosis. PH 6.88 -We'll administer bicarbonate 100 mEq in D5W (sterile water not available) over 2 hours due to severe acidosis -IV fluid therapy, 1000 cc per hour 4 hours -Insulin drip -Monitor electrolytes, magnesium, phosphate -Check hemoglobin A1c 2. Hyperthyroidism Plan -Patient presents with depression of TSH -Questionable iatrogenic hyperthyroidism -Check free T4/free T3 -Hold supplemental thyroid at this time 3. Dehydration Plan -Patient presents with findings of dehydration -IV fluid therapy -Monitor 4. Hypertension Status Chronic Onset Date Unknown Plan -Patient with history of hypertension -Low-salt diet -Continue outpatient medical regimen when patient taking well orally -Monitor 5. Hypercholesterolemia Status Chronic Onset Date Unknown Plan -Patient with history of hyperlipidemia/hypercholesterolemia -Check lipid profile -Continue outpatient medical regimen when patient taking well orally. 6. Pneumonia Status Acute Onset Date Unknown Plan -Patient with history of cough/sore throat -Chest x-ray unremarkable -Pulmonary examination shows rales right base -Leukocytosis, elevated Procalcitonin -Rule out sepsis -Blood cultures 2 -Levaquin 750 mg IV daily Current status: Critical, unstable Anticipated discharge date: Anticipated discharge in 2-3 days with improved status Anticipated discharge placement: Home Patient care time: Critical care time spent in chart review, patient interview, physical exam, CPOE, and care documentation in one-on-one basis: 95 minutes Visit to patient today: 3 Complexity of care: High Initial patient evaluation: Emergency department DVT prophylaxis: SCD GI prophylaxis: Protonix 40 mg IV daily E&M Codes Critical Care: 30-74 min/79143, Each add'l 30 min/65153 Complexity of care: High Initial patient evaluation: Emergency department DVT prophylaxis: SCD GI prophylaxis: Protonix 40 mg IV daily E&M Codes Critical Care: 30-74 min/21398, Each add'l 30 min/07299
[2017-02-12] VITALS (21 sets, daily range): BP systolic 99–169; BP diastolic 46–78
[2017-02-12] MEDS ORDERED: INVOKANA300 MG PO (02:51)
[2017-02-12] MEDS ORDERED: BIOTIN1000 MCG PO (02:53)
[2017-02-12] MEDS ORDERED: VITAMIN D-11000 UNIT PO (02:55)
--- NOTE | 2017-02-12 07:04 | Progress Note ---
Subjective General doing much better, c/o of dry mouth, no nausea or vomiting no abdominal pain, feels hungry, no pain, Physical Exam Vital Signs / I&Os Vital Signs Date Time Temp Pulse Resp B/P Pulse O2 O2 Flow FiO2 Ox Delivery Rate 02/12 0600 98.2 116 26 115/56 100 Room Air 05/ 0500 115 25 131/65 100 Room Air 02/12 0400 113 25 114/56 100 Room Air 02/12 0300 108 26 99/46 100 Room Air 02/12 0223 96.1 110 31 104/49 100 Room Air General Appearance Mild distress Lungs crackles in right base Cardiovascular Regular rate and rhythm, Normal S1 and S2 Abdomen Normal bowel sounds, Soft, No tenderness Extremities No edema Assessment and Plan Problem List 1. Diabetic keto-acidosis Plan continue IV fluid 250cc/h, insulin 12 unit/h, monitor lytes, ABG is being done now, monitor blood sugar 2. Hypothyroidism Status Chronic Onset Date Unknown Plan Free T4 normal, Free T3 pending 3. Dehydration Plan continue IV fluid, 4. Hypertension Status Chronic Onset Date Unknown Plan controlled
--- NOTE | 2017-02-12 13:36 | DIAGNOSTIC IMAGING REPORT ---
PROCEDURE: XR CHEST 1 VIEW INDICATION: COUGH TECHNIQUE: Portable AP view 01:10 p.m. COMPARISON: Chest x-ray 02/11/2017. FINDINGS: New small retrocardiac infiltrate. Heart and mediastinum are normal. Thorax is normal. IMPRESSION: 1. New retrocardiac infiltrate suggestive of pneumonia 2. Results discussed with Dr. Myers
[2017-02-13] VITALS (16 sets, daily range): BP systolic 138–174; BP diastolic 54–86
--- NOTE | 2017-02-13 07:41 | Progress Note ---
Subjective General Note Date: 02/11/2017 Admission Date: date February 11, 2017 Hospital Day: Hospital day 3 PCP: Gary Vela MD Status: unstable. Advanced Directive:full Code Room: 305 Status: Inpatient, AC tele The patient is a 51-year-old white female with a significant past medical history of diabetes mellitus, hypothyroidism, hypertension, hyperlipidemia, who presented to [facility] emergency department on the day of admission secondary to the above chief complaint. [facility] ER evaluation was consistent with diabetic ketoacidosis, rule out sepsis, rule out pneumonia. Secondary to the above the patient was admitted by Zack Flanagan M.D. for further evaluation and treatment. Subjective Patient is tolerating the insulin drip. Patient is now eating. Patient is on her home regimen. She reports that she stopped eating for 5 days prior to the event due to illness. Patient reports that her sore throat is persistent. She reports a swelling in the throat and difficulty swallowing. Also reporting of a headache. Patient states that she slept subsided last night not well. Patient is asking for something for the sore throat. Patient request Help with reducing the sore throat Constitutional Denies: Fever, Chills, Weakness. ENT Mouth Pain, Mouth Swelling, Throat Pain, Throat Swelling. Respiratory Denies: Cough, SOB w/exertion. Cardiovascular Denies: Palpitations, Orthopnea. Gastrointestinal Denies: Abdominal Pain, Melena, Hematochezia. Genitourinary Denies: Incontinence. Physical Exam Vital Signs / I&Os Vital Signs Date Time Temp Pulse Resp B/P Pulse O2 O2 Flow FiO2 Ox Delivery Rate / 0600 98.8 85 18 144/68 94 Room Air 05/06 0500 86 18 147/57 95 Room Air 05/06 0400 86 18 141/54 95 Room Air 05/06 0320 86 18 147/66 96 Room Air 05/06 0200 98.8 92 18 174/63 95 Room Air 05/06 0112 92 18 166/59 95 Room Air 05/06 0000 94 18 161/57 96 Room Air 05/05 2300 96 21 169/78 95 Room Air 05/05 2200 98.8 96 21 165/57 96 Room Air 05/05 2100 99 14 167/70 99 Room Air 05/05 2000 99 21 156/69 100 Room Air 05/05 1900 100 24 154/50 100 Room Air 05/05 1800 99.7 93 22 133/66 99 05/05 1615 99.0 97 24 144/60 99 05/05 1502 99.0 99 19 136/56 98 05/05 1413 99.0 05 1404 99 23 146/68 99 05/05 1321 102 22 151/58 99 Room Air 05 1212 100 20 135/62 99 Room Air 05 1108 102 21 127/61 100 Room Air 02/12 1018 104 24 128/60 98 Room Air 02/12 0957 99.0 108 18 140/67 100 Room Air 05 0800 112 24 132/63 98 Room Air I&O 02/12 0800 05 1600 05 0000 Intake Total 4500 2300 630 Output Total 1550 1950 1975 Balance 2950 350 -1345 General Appearance Oriented X3, Cooperative HEENT Atraumatic, EOMI, hoarse voice, odynophagia erythematous changes in the posterior pharynx Lungs Clear to auscultation Breasts No masses or lumps Cardiovascular Normal S1 and S2, No murmurs, gallops, rubs Extremities No tenderness Skin No Breakdown Neurological Normal tone, Sensation intact Psych/Mental Status Mood normal LAB Results Laboratory Tests 02/12 02/12 02/12 02/12 02/12 0905 1100 1102 1300 1302 Chemistry Plasma Sodium (136 - 145 mmol/L) 140 139 Plasma Potassium (3.5 - 5.1 mmol/L) 4.9 4.6 Cancelled 4.3 Cancelled Plasma Chloride (98 - 107 mmol/L) 103 105 CO2 (Enzymatic) (21 - 32 mmol/L) 11 15 BUN (7 - 18 mg/dL) 59 55 Creatinine (0.6 - 1.3 mg/dL) 1.8 1.7 Est GFR ( Amer) (mL/min) 38.52 41.15 Est GFR (Non-Af Amer) (mL/min) 31.78 33.95 Glucose (70 - 110 mg/dL) 286 197 169 Plasma Calcium (8.5 - 10.1 mg/dL) 7.7 7.7 Total Bilirubin (0.0 - 1.0 mg/dL) 0.6 AST (15 - 37 U/L) 27 ALT (12 - 78 U/L) 37 Alkaline Phosphatase (46 - 116 U/L) 111 Total Protein (6.4 - 8.2 g/dL) 6.1 Albumin (3.3 - 5.0 g/dL) 2.9 05 05/02/12 1500 1502 1700 1855 1902 Chemistry Plasma Sodium (136 - 145 mmol/L) 141 Plasma Potassium (3.5 - 5.1 mmol/L) Cancelled Cancelled 4.3 4.0 Cancelled Plasma Chloride (98 - 107 mmol/L) 110 CO2 (Enzymatic) (21 - 32 mmol/L) 19 BUN (7 - 18 mg/dL) 41 Creatinine (0.6 - 1.3 mg/dL) 1.4 Est GFR ( Amer) (mL/min) 51.48 Est GFR (Non-Af Amer) (mL/min) 42.48 Glucose (70 - 110 mg/dL) 184 Plasma Calcium (8.5 - 10.1 mg/dL) 7.7 02/12 02/12 02/12 02/13 02/13 2102 2150 2302 0102 0130 Chemistry Plasma Sodium (136 - 145 mmol/L) 143 146 Plasma Potassium (3.5 - 5.1 mmol/L) Cancelled 3.9 Cancelled Cancelled 3.6 Plasma Chloride (98 - 107 mmol/L) 113 114 CO2 (Enzymatic) (21 - 32 mmol/L) 19 19 BUN (7 - 18 mg/dL) 35 27 Creatinine (0.6 - 1.3 mg/dL) 1.3 1.2 Est GFR ( Amer) (mL/min) 56.08 >60 Est GFR (Non-Af Amer) (mL/min) 46.27 50.75 Glucose (70 - 110 mg/dL) 187 195 Plasma Calcium (8.5 - 10.1 mg/dL) 7.5 7.4 02/13 02/13 0355 0400 Blood Gas Sample Site RR Total CO2 (24.0 - 30.0 mmol/L) 20.0 ABG pH (7.35 - 7.45) 7.39 ABG pCO2 at Pt Temp (35 - 45 mmHg) 31.2 ABG pO2 at Pt Temp (80.0 - 100.0 mmHg) 73.6 ABG HCO3 (20.0 - 26.0 mmol/L) 19.1 ABG O2 Sat Calc/Kiko (95.1 - 100.0 %) 93.9 ABG Base Excess (-6.0 - -6.0 mmol/L) -5.2 ABG Reduced Hgb (%) 6.1 ABG Carboxyhemoglobin (0.5 - 1.5 %) 0.0 ABG Methemoglobin (0.4 - 1.5 %) 0.4 Nico Test NO Other Total Hgb (12.0 - 16.0 g/dL) 11.9 A-a O2 Gradient (7.0 - 14.0 mmHg) 40.4 Hgb O2 Saturation (95.0 - 100.0 %) 93.5 O2 Liters/Min (0 - 20 L/MIN) 0 Vent Mode RA FiO2 (20 - 101 %) 21 Blood Gas Comments ROOM AIR Chemistry Plasma Sodium (136 - 145 mmol/L) 146 Plasma Potassium (3.5 - 5.1 mmol/L) 3.4 Plasma Chloride (98 - 107 mmol/L) 114 CO2 (Enzymatic) (21 - 32 mmol/L) 20 BUN (7 - 18 mg/dL) 23 Creatinine (0.6 - 1.3 mg/dL) 1.1 Est GFR ( Amer) (mL/min) >60 Est GFR (Non-Af Amer) (mL/min) 56.11 Glucose (70 - 110 mg/dL) 175 Plasma Calcium (8.5 - 10.1 mg/dL) 7.6 Hematology WBC (4.5 - 11.5 K/uL) 10.9 RBC (4.00 - 5.20 M/uL) 3.86 Hgb (12.0 - 16.0 gm/dL) 11.6 Hct (36.0 - 46.0 %) 34.9 MCV (80 - 100 fL) 90 MCH (26 - 34 pg) 30 RDW (11.6 - 14.8 %) 12.7 Neut % (Auto) (50 - 75 %) 78.4 Lymph % (Auto) (25 - 40 %) 13.5 [place] % (Auto) (3 - 14 %) 7.9 Eos % (Auto) (0 - 4 %) 0 Baso % (Auto) (0 - 2 %) 0.2 Plt Count, EDTA (150 - 400 K/uL) 201 PUBS MCHC (31 - 37 g/dL) 33 Assessment and Plan Problem List 1. Diabetes mellitus Status Chronic Onset Date Unknown Plan Monitor blood sugars Before meals at bedtime. Start in the home regimen including a 37 units of Lantus we'll. Continue current short acting out a moderate scale. Patient was given 10 units with meals. Patient's blood sugars have normalized. Crib Pad Maker is been discontinued. The labs are normalizing Repeat labs in the a.m. 2. Diabetic keto-acidosis Plan Diabetic ketoacidosis. The keratosis has resolved. Patient is off the drip fluid hydrated and normalized. Discussed options of patient in the future BNL. Recommended the patient continue with the long-acting Lantus but at half the dosage. She should not discontinue her insulins altogether. 3. Hyperthyroidism Plan Continue with the thyroid replacement no changes 4. Dehydration Plan Maintaining adequate hydration at this time. We'll continue with the D5 half-normal saline at 150 per hour. Monitor potassium. 5. Pneumonia Status Acute Onset Date Unknown Plan Pneumonia protocol. Continue with the levofloxacin 750 mg daily. This will continue for the next 7 days. Current status: Fair, unstable to stable Anticipated discharge date: Anticipated discharge in 2-3 days Anticipated discharge placement: Home versus penitentiary facility Patient care time: Time spent in chart review, patient interview, physical exam, CPOE, and care documentation: 35 minutes Visit to patient today: 3 Complexity of care: High DVT prophylaxis: Lovenox GI prophylaxis: Protonix 40 mg by mouth daily Advance care plan: CODE STATUS-full code E&M Codes Rounding: Inpt-High/41310
[2017-02-14 03:39] VITALS: BP 151/78
[2017-02-14 07:09] VITALS: BP 154/78
--- NOTE | 2017-02-14 07:17 | Progress Note ---
Subjective General Note Date: 02/14/2017 Admission Date: date February 11, 2017 Hospital Day: Hospital day 4 PCP: Gary Veal MD Status: unstable. Advanced Directive:full Code Room: 305 Status: Inpatient, AC tele The patient is a 51-year-old white female with a significant past medical history of diabetes mellitus, hypothyroidism, hypertension, hyperlipidemia, who presented to [facility] emergency department on the day of admission secondary to the above chief complaint. [facility] ER evaluation was consistent with diabetic ketoacidosis, rule out sepsis, rule out pneumonia. Secondary to the above the patient was admitted by Zack Flanagan M.D. for further evaluation and treatment. Subjective: Patient reports improvement. She has gains in her appetite. Patient continues to report a sore spots in the mouth. Patient's in the mouth and throat has decreased. Patient having less sore throat. Patient is sitting up in a chair today. Patient request Patient is asking for her medication to be restarted; including levothyroxine, liothryonin, Losartan and atenolol. Constitutional Denies: Chills, Sweats. ENT Mouth Pain, Throat Pain, Throat Swelling. Cardiovascular Denies: Palpitations. Neurological Denies: Incoordination, Change in speech. Physical Exam Vital Signs / I&Os Vital Signs Date Time Temp Pulse Resp B/P Pulse O2 O2 Flow FiO2 Ox Delivery Rate / 0709 98.8 82 18 154/78 98 05/ 0339 98.2 151/78 05/ 0230 81 16 97 Room Air 05/06 2231 98.8 73 16 139/80 99 Room Air 05/06 2030 Room Air 05/ 1804 97.7 93 20 143/68 98 Room Air 05/06 1400 97.7 77 20 161/86 99 Room Air 05/06 1353 99.0 05/06 1208 75 20 138/65 97 Room Air 05/06 1115 82 21 138/65 97 Room Air 05/06 1000 87 21 150/73 98 Room Air 05/06 0919 80 150/66 05/06 0800 Room Air 05/06 0800 81 20 138/67 05/06 0746 82 17 140/66 96 Room Air I&O 05/06 0800 05/06 1600 05/07 0000 Intake Total 2753 1732 540 Output Total 500 1800 1600 Balance 2253 -68 -1060 General Appearance Oriented X3, Cooperative, No acute distress HEENT EOMI Lungs Clear to auscultation Neck Supple, No JVD Cardiovascular Regular rate and rhythm, Normal S1 and S2 Abdomen Soft, No tenderness Extremities No clubbing, No edema Neurological Normal speech, No lateralizing signs Psych/Mental Status Mood normal LAB Results Laboratory Tests 02/14 0510 Chemistry Plasma Sodium (136 - 145 mmol/L) 144 Plasma Potassium (3.5 - 5.1 mmol/L) 4.0 Plasma Chloride (98 - 107 mmol/L) 111 CO2 (Enzymatic) (21 - 32 mmol/L) 23 BUN (7 - 18 mg/dL) 13 Creatinine (0.6 - 1.3 mg/dL) 0.9 Est GFR ( Amer) (mL/min) >60 Est GFR (Non-Af Amer) (mL/min) >60 Glucose (70 - 110 mg/dL) 308 Plasma Calcium (8.5 - 10.1 mg/dL) 7.7 Plasma Magnesium (1.8 - 2.4 mg/dL) 1.9 Total Bilirubin (0.0 - 1.0 mg/dL) 0.4 AST (15 - 37 U/L) 16 ALT (12 - 78 U/L) 23 Alkaline Phosphatase (46 - 116 U/L) 90 Total Protein (6.4 - 8.2 g/dL) 4.8 Albumin (3.3 - 5.0 g/dL) 2.2 Hematology WBC (4.5 - 11.5 K/uL) 5.9 RBC (4.00 - 5.20 M/uL) 3.67 Hgb (12.0 - 16.0 gm/dL) 11.1 Hct (36.0 - 46.0 %) 32.9 MCV (80 - 100 fL) 90 MCH (26 - 34 pg) 30 RDW (11.6 - 14.8 %) 13.1 Neut % (Auto) (50 - 75 %) 70.6 Lymph % (Auto) (25 - 40 %) 19.2 [place] % (Auto) (3 - 14 %) 9.6 Eos % (Auto) (0 - 4 %) 0.3 Baso % (Auto) (0 - 2 %) 0.3 Plt Count, EDTA (150 - 400 K/uL) 155 PUBS MCHC (31 - 37 g/dL) 34 Assessment and Plan Problem List 1. Diabetes mellitus Status Chronic Onset Date Unknown Plan Management of diabetes. All labs of nearly normalized. Increase the dose of the Lantus to 55 units, continue with a moderate sliding scale with log, Novolin 2. Lactic acidosis Plan Lactic acidosis has resolved. Patient is homeowners acidotic. Patient's blood sugars have normalized and chemistries normalized. 3. Dehydration Plan Monitor hydration. Continue with the normal saline at 150 cc per hour. Potassium is at a normal level today. Continue to advance insulins. 4. Pneumonia Status Acute Onset Date Unknown Plan Pneumonia on initiation or admission. We'll continue with the Levaquin 750 mg daily for the next 4-5 days. 5. Hypertension Status Chronic Onset Date Unknown Plan Blood pressure management. We'll restart her losartan at 100 mg daily. 6. Hypothyroidism Status Chronic Onset Date Unknown Plan Continue with the replacement of the thyroid. Levothyroxine 125 g daily. Liothreonine is not available in our pharmacopeia. Current status: Fair, unstable to stable Anticipated discharge date: Anticipated discharge in 1-2 days Anticipated discharge placement: Home versus intermediate facility Patient care time: Time spent in chart review, patient interview, physical exam, CPOE, and care documentation: 35 minutes Visit to patient today: 1 Complexity of care: High DVT prophylaxis: Lovenox GI prophylaxis: Protonix 40 mg by mouth daily Advance care plan: CODE STATUS-full code E&M Codes Rounding: Inpt-High/64955
[2017-02-14 11:17] VITALS: BP 147/72
[2017-02-14 14:26] VITALS: BP 139/74
[2017-02-14 18:05] VITALS: BP 140/75
[2017-02-14 22:30] VITALS: BP 141/69
[2017-02-15 02:05] VITALS: BP 148/87
[2017-02-15 07:16] VITALS: BP 149/71
--- NOTE | 2017-02-15 07:24 | Progress Note ---
Subjective General Note Date: 02/14/2017 Admission Date: date February 11, 2017 Hospital Day: Hospital day 4 PCP: Gary Vela MD Status: unstable. Advanced Directive:full Code Room: 305 Status: Inpatient, AC tele The patient is a 51-year-old white female with a significant past medical history of diabetes mellitus, hypothyroidism, hypertension, hyperlipidemia, who presented to [facility] emergency department on the day of admission secondary to the above chief complaint. [facility] ER evaluation was consistent with diabetic ketoacidosis, rule out sepsis, rule out pneumonia. Secondary to the above the patient was admitted by Zack Flanagan M.D. for further evaluation and treatment. Subjective: Patient reports improvement. She reports that her sore throat i and throat swelling has decreased pedal 40%. Patient continues to have good appetite. Patient taking her medication as planned. Patient is anxious to go home. Patient has follow-up with endocrinology and with primary care upon her discharge. Patient will be seen by diabetic educators on discharge as well Patient request Discharged home. Constitutional Denies: Chills, Sweats. Respiratory Denies: SOB w/exertion, Wheezing. Cardiovascular Denies: Palpitations. Physical Exam Vital Signs / I&Os Vital Signs Date Time Temp Pulse Resp B/P Pulse O2 O2 Flow FiO2 Ox Delivery Rate 02/15 0716 98.1 72 18 149/71 99 Room Air 0.0 02/15 0205 98.2 77 12 148/87 99 Room Air 02/14 2230 97.9 79 18 141/69 99 Room Air 0.0 02/14 2111 77 / 2030 Room Air 02/14 1805 98.2 74 18 140/75 98 Room Air 02/14 1426 99.1 72 18 139/74 99 Room Air 02/14 1213 91 02/14 1117 98.8 75 18 147/72 98 Room Air I&O 02/14 0800 05/07 1600 05/08 0000 Intake Total 406 523 8003 Output Total 800 2100 2250 Balance -460 -1220 165 General Appearance Oriented X3, Cooperative HEENT erythematous changes in the posterior pharynx Lungs Clear to auscultation Neck Supple Cardiovascular Regular rate and rhythm Abdomen Normal bowel sounds Extremities No cyanosis, No clubbing Psych/Mental Status Mental status normal LAB Results Laboratory Tests 02/15 0505 Chemistry Plasma Sodium (136 - 145 mmol/L) 144 Plasma Potassium (3.5 - 5.1 mmol/L) 4.1 Plasma Chloride (98 - 107 mmol/L) 111 CO2 (Enzymatic) (21 - 32 mmol/L) 23 BUN (7 - 18 mg/dL) 19 Creatinine (0.6 - 1.3 mg/dL) 0.8 Est GFR ( Amer) (mL/min) >60 Est GFR (Non-Af Amer) (mL/min) >60 Glucose (70 - 110 mg/dL) 309 Plasma Calcium (8.5 - 10.1 mg/dL) 8.1 Total Bilirubin (0.0 - 1.0 mg/dL) 0.4 AST (15 - 37 U/L) 12 ALT (12 - 78 U/L) 21 Alkaline Phosphatase (46 - 116 U/L) 104 Total Protein (6.4 - 8.2 g/dL) 5.4 Albumin (3.3 - 5.0 g/dL) 2.3 Hematology WBC (4.5 - 11.5 K/uL) 6.1 RBC (4.00 - 5.20 M/uL) 4.03 Hgb (12.0 - 16.0 gm/dL) 12.1 Hct (36.0 - 46.0 %) 36.5 MCV (80 - 100 fL) 91 MCH (26 - 34 pg) 30 RDW (11.6 - 14.8 %) 12.9 Neut % (Auto) (50 - 75 %) 64.6 Lymph % (Auto) (25 - 40 %) 26.3 [place] % (Auto) (3 - 14 %) 7.2 Eos % (Auto) (0 - 4 %) 1.9 Baso % (Auto) (0 - 2 %) 0 Plt Count, EDTA (150 - 400 K/uL) 166 PUBS MCHC (31 - 37 g/dL) 33 Assessment and Plan Problem List 1. Diabetes mellitus Status Chronic Onset Date Unknown Plan Patient with history of diabetes mellitus, likely Lori. Patient has follow-up with a new cranberry farm supervisor. Recommending that we hold all oral diabetic medication at this time. Discussed the use of Lantus and 77 units daily this should continue as a consistent dose. Adjusted only during interview and times with endocrinology. The Lantus should not be stopped at time illness or when not eating. But rather the dose should be reduced by half and then slowly increased over the course of the next few days as eating increases. Started on a sliding scale. Taking 2 units for every 30 mg/dL of glucose over 150. Carb counting would be appropriate as well. This can be i discussed with here cranberry farm supervisor 2. Diabetic keto-acidosis Plan History of diabetic ketoacidosis on admission. All values have normalized. Subjective improvement. Back on normal doses of insulin. Avoid dehydration. 3. Dehydration Plan Dehydration discussed. Maintaining appropriate fluid balance. 4. Pneumonia Status Acute Onset Date Unknown Plan History of pneumonia. Would continue with the Levaquin 750 mg for the next 5 days. This is converted over to oral tablet formulations. 5. Hypertension Status Chronic Onset Date Unknown Plan Blood pressure well managed. Continue with the same losartan Hydrochlorothiazide Follow-up with primary care. 6. Hypothyroidism Status Chronic Onset Date Unknown Plan Hypothyroid; discussed appropriate levothyroxine dosage along with medial screening dosage. Current status: Fair, stable Anticipated discharge date: Anticipated discharge 02/15/2017 Anticipated discharge placement: Home Patient care time: Time spent in chart review, patient interview, physical exam, CPOE, and care documentation: 35 minutes. Discharge planning. Visit to patient today: 2 Complexity of care: Moderate DVT prophylaxis: Lovenox GI prophylaxis: Protonix 40 mg by mouth daily Advance care plan: CODE STATUS-full code E&M Codes Rounding: Inpt-High/41027 Discharge: Inpt >30 min spent/52497
--- NOTE | 2017-02-15 07:24 | Progress Note ---
Subjective General Note Date: 02/14/2017 Admission Date: date February 11, 2017 Hospital Day: Hospital day 4 PCP: Gary Vela MD Status: unstable. Advanced Directive:full Code Room: 305 Status: Inpatient, AC tele The patient is a 51-year-old white female with a significant past medical history of diabetes mellitus, hypothyroidism, hypertension, hyperlipidemia, who presented to [facility] emergency department on the day of admission secondary to the above chief complaint. [facility] ER evaluation was consistent with diabetic ketoacidosis, rule out sepsis, rule out pneumonia. Secondary to the above the patient was admitted by Zack Flanagan M.D. for further evaluation and treatment. Subjective: Patient reports improvement. She reports that her sore throat i and throat swelling has decreased pedal 40%. Patient continues to have good appetite. Patient taking her medication as planned. Patient is anxious to go home. Patient has follow-up with endocrinology and with primary care upon her discharge. Patient will be seen by diabetic educators on discharge as well Patient request Discharged home. Constitutional Denies: Chills, Sweats. Respiratory Denies: SOB w/exertion, Wheezing. Cardiovascular Denies: Palpitations. Physical Exam Vital Signs / I&Os Vital Signs Date Time Temp Pulse Resp B/P Pulse O2 O2 Flow FiO2 Ox Delivery Rate 02/15 0716 98.1 72 18 149/71 99 Room Air 0.0 02/15 0205 98.2 77 12 148/87 99 Room Air 02/14 2230 97.9 79 18 141/69 99 Room Air 0.0 02/14 2111 77 / 2030 Room Air 02/14 1805 98.2 74 18 140/75 98 Room Air 02/14 1426 99.1 72 18 139/74 99 Room Air 02/14 1213 91 02/14 1117 98.8 75 18 147/72 98 Room Air I&O 02/14 0800 05/07 1600 05/08 0000 Intake Total 033 694 1390 Output Total 800 2100 2250 Balance -460 -1220 165 General Appearance Oriented X3, Cooperative HEENT erythematous changes in the posterior pharynx Lungs Clear to auscultation Neck Supple Cardiovascular Regular rate and rhythm Abdomen Normal bowel sounds Extremities No cyanosis, No clubbing Psych/Mental Status Mental status normal LAB Results Laboratory Tests 02/15 0505 Chemistry Plasma Sodium (136 - 145 mmol/L) 144 Plasma Potassium (3.5 - 5.1 mmol/L) 4.1 Plasma Chloride (98 - 107 mmol/L) 111 CO2 (Enzymatic) (21 - 32 mmol/L) 23 BUN (7 - 18 mg/dL) 19 Creatinine (0.6 - 1.3 mg/dL) 0.8 Est GFR ( Amer) (mL/min) >60 Est GFR (Non-Af Amer) (mL/min) >60 Glucose (70 - 110 mg/dL) 309 Plasma Calcium (8.5 - 10.1 mg/dL) 8.1 Total Bilirubin (0.0 - 1.0 mg/dL) 0.4 AST (15 - 37 U/L) 12 ALT (12 - 78 U/L) 21 Alkaline Phosphatase (46 - 116 U/L) 104 Total Protein (6.4 - 8.2 g/dL) 5.4 Albumin (3.3 - 5.0 g/dL) 2.3 Hematology WBC (4.5 - 11.5 K/uL) 6.1 RBC (4.00 - 5.20 M/uL) 4.03 Hgb (12.0 - 16.0 gm/dL) 12.1 Hct (36.0 - 46.0 %) 36.5 MCV (80 - 100 fL) 91 MCH (26 - 34 pg) 30 RDW (11.6 - 14.8 %) 12.9 Neut % (Auto) (50 - 75 %) 64.6 Lymph % (Auto) (25 - 40 %) 26.3 [place] % (Auto) (3 - 14 %) 7.2 Eos % (Auto) (0 - 4 %) 1.9 Baso % (Auto) (0 - 2 %) 0 Plt Count, EDTA (150 - 400 K/uL) 166 PUBS MCHC (31 - 37 g/dL) 33 Assessment and Plan Problem List 1. Diabetes mellitus Status Chronic Onset Date Unknown Plan Patient with history of diabetes mellitus, likely Lori. Patient has follow-up with a new firearms instructor. Recommending that we hold all oral diabetic medication at this time. Discussed the use of Lantus and 77 units daily this should continue as a consistent dose. Adjusted only during interview and times with endocrinology. The Lantus should not be stopped at time illness or when not eating. But rather the dose should be reduced by half and then slowly increased over the course of the next few days as eating increases. Started on a sliding scale. Taking 2 units for every 30 mg/dL of glucose over 150. Carb counting would be appropriate as well. This can be i discussed with here firearms instructor 2. Diabetic keto-acidosis Plan History of diabetic ketoacidosis on admission. All values have normalized. Subjective improvement. Back on normal doses of insulin. Avoid dehydration. 3. Dehydration Plan Dehydration discussed. Maintaining appropriate fluid balance. 4. Pneumonia Status Acute Onset Date Unknown Plan History of pneumonia. Would continue with the Levaquin 750 mg for the next 5 days. This is converted over to oral tablet formulations. 5. Hypertension Status Chronic Onset Date Unknown Plan Blood pressure well managed. Continue with the same losartan Hydrochlorothiazide Follow-up with primary care. 6. Hypothyroidism Status Chronic Onset Date Unknown Plan Hypothyroid; discussed appropriate levothyroxine dosage along with medial screening dosage. Current status: Fair, stable Anticipated discharge date: Anticipated discharge 02/15/2017 Anticipated discharge placement: Home Patient care time: Time spent in chart review, patient interview, physical exam, CPOE, and care documentation: 35 minutes. Discharge planning. Visit to patient today: 2 Complexity of care: Moderate DVT prophylaxis: Lovenox GI prophylaxis: Protonix 40 mg by mouth daily Advance care plan: CODE STATUS-full code E&M Codes Rounding: Inpt-High/26772 Discharge: Inpt >30 min spent/15195
[2017-02-15 11:00] VITALS: BP 154/85
--- NOTE | 2017-02-15 13:07 | Discharge Summary ---
Discharge Summary Report Admit Date 02/11/17 Discharge Date 02/15/17 Admission Diagnosis 1. Diabetic ketoacidosis 2. Hyper thyroidism 3. Dehydration 4. Hypertension 5. Hypercholesterolemia 6. Pneumonia Discharge Diagnosis 1. Diabetic ketoacidosis 2. Hyper thyroidism 3. Dehydration 4. Hypertension 5. Hypercholesterolemia 6. Pneumonia Brief History 51-year-old white female with a significant past medical history of diabetes mellitus, hypothyroidism, hypertension, hyperlipidemia, who presented to [facility] emergency department on the day of admission secondary to the above chief complaint. [facility] ER evaluation was consistent with diabetic ketoacidosis, rule out sepsis, rule out pneumonia. Secondary to the above the patient was admitted by Zack Flanagan M.D. for further evaluation and treatment. Hospital Course Patient was originally admitted with to ICU with diabetic ketoacidosis. Patient apparently stopped eating and taking insulin over the previous for 5 days due to illness. Patient reports of sore throat cough difficulty keeping foods down. Patient patient was admitted to the ICU with initial blood gas showing a pH of 6.9. In a PCO2 of 11.3. Patient was started on fluid hydration started on insulin drip. Patient was also started on a bicarbonate drip due to the psychotic nature. Patient's follow-up blood gas improves with the next few days. Patient normalized pH by the 2. The insulin drip was discontinued after 2 days. Patient was started back on her long-acting insulin. The short acting insulin was slowly reintroduced. Patient maintaining adequate intake by mouth. Additional medication was also reintroduced. All oral diabetic medications were held. Patient was also found to have pneumonia on admission. Patient was started on Levaquin 750 mg daily IV. Patient was discharged home on by mouth Levaquin 750 mg this should continue for the next 5 days. Diabetic education and nutrition reviewed patient's profile. Recommendations related to dietary changes. In addition patient developed sore throat and swelling in the pharynx. This was most notable on day 2. Patient began having wakefulness last groggy and sleepy pain. Patient was given Chloraseptic spray along with a anti-inflammatory. Patient had significant improvement over the next few days. Patient was up walking, still having hoarseness of voice but talking. Family support was appropriate. General Appearance Oriented X3, Cooperative HEENT posterior pharynx erythematous, boggy Lungs Normal air movement Cardiovascular Normal S1, Normal S2 Skin No Rashes, No Breakdown Psych/Mental Status Mental status NL Lab/Imaging Laboratory Tests 02/15 0505 Chemistry Plasma Sodium (136 - 145 mmol/L) 144 Plasma Potassium (3.5 - 5.1 mmol/L) 4.1 Plasma Chloride (98 - 107 mmol/L) 111 CO2 (Enzymatic) (21 - 32 mmol/L) 23 BUN (7 - 18 mg/dL) 19 Creatinine (0.6 - 1.3 mg/dL) 0.8 Est GFR ( Amer) (mL/min) >60 Est GFR (Non-Af Amer) (mL/min) >60 Glucose (70 - 110 mg/dL) 309 Plasma Calcium (8.5 - 10.1 mg/dL) 8.1 Total Bilirubin (0.0 - 1.0 mg/dL) 0.4 AST (15 - 37 U/L) 12 ALT (12 - 78 U/L) 21 Alkaline Phosphatase (46 - 116 U/L) 104 Total Protein (6.4 - 8.2 g/dL) 5.4 Albumin (3.3 - 5.0 g/dL) 2.3 Hematology WBC (4.5 - 11.5 K/uL) 6.1 RBC (4.00 - 5.20 M/uL) 4.03 Hgb (12.0 - 16.0 gm/dL) 12.1 Hct (36.0 - 46.0 %) 36.5 MCV (80 - 100 fL) 91 MCH (26 - 34 pg) 30 RDW (11.6 - 14.8 %) 12.9 Neut % (Auto) (50 - 75 %) 64.6 Lymph % (Auto) (25 - 40 %) 26.3 [place] % (Auto) (3 - 14 %) 7.2 Eos % (Auto) (0 - 4 %) 1.9 Baso % (Auto) (0 - 2 %) 0 Plt Count, EDTA (150 - 400 K/uL) 166 PUBS MCHC (31 - 37 g/dL) 33 Discharge Instructions/Meds Patient is discharged home on her long-acting insulin Lantus 77 units daily. Also she was given a sliding scale for her short acting. Patient has sliding scale which instructs to give 2 units NovoLog for every 30 mg/dL of glucose over 150. Patient be done at mealtime and before bedtime. Patient should be mindful of any lows in her blood sugar or any extreme highs. If the blood sugars began fluctuating without control. Patient should then return to the emergency department for further assistance. Patient needs to have follow-up with endocrinology in her primary care provider within the next 3-5 days. The patient was discharged home and asked to hold all oral medication for diabetes this time. Patient should continue with the NovoLog as discussed above on a sliding scale. Holding metformin 500 mg taken 3 times per day, continue with the levothyroxine 125 g by mouth daily., Continue the Liothyronine 5 g by mouth twice per day., Hold the Invokana 300 mg po daily, continue the losartan 100 mg by mouth daily. Continue with the atenolol 50 mg by mouth twice per day. Continue the pravastatin 40 mg daily. Continue the gemfibrozil 600 mg by mouth twice per day. Continue the progesterone 200 mg by mouth daily. Continue the Reglan 5 mg by mouth twice per day as needed for nausea. Take the Triceba 76 units sub q daily. Hold the Bydureon 2 mg subcutaneous daily. Hold the Belviq 100 mg by mouth daily. Hold the Victoza 1.8 mg subcutaneous daily. All oral medication should be held until seen by endocrinology. Continue with the long-acting short acting insulins. Return to the emergency department with intractable nausea vomiting, changes in mental status or any other emergent emergent concerns. Greater than 30 minutes was used in preparation of this discharge. E&M Codes Discharge: Inpt >30 min spent/26277
[2017-02-15 14:20] VITALS: BP 144/81
[2017-02-15] MEDS ORDERED: LEVOFLOXACIN750 MG PO (16:56)
--- NOTE | 2017-02-15 17:02 | Provider's Discharge Care Plan ---
Problem, Goal, Plan Problem List 1. Diabetes mellitus Goals: Diagnostic testing, Improved health/wellness, Learn about illness, Therapeutic intervention Instructions: Follow up as directed, Take meds as directed 2. Diabetic keto-acidosis Goals: Therapeutic intervention Instructions: Follow up as directed 3. Lactic acidosis Goals: Therapeutic intervention Instructions: Follow up as directed 4. Hyperthyroidism Goals: Diagnostic testing, Learn about illness, Therapeutic intervention Instructions: Take meds as directed 5. Dehydration Goals: Diagnostic testing, Therapeutic intervention Instructions: Follow up as directed 6. Pneumonia Goals: Prevent disease progress, Therapeutic intervention Instructions: Follow up as directed 7. Hypertension Goals: Diagnostic testing, Improve disease control, Therapeutic intervention Instructions: Follow up as directed
--- NOTE | 2017-02-15 17:11 | ED MAR SUMMARY ---
..... Medication Administration Record [facility] [address] [address] Patient: DAVID HUMPHREYS Visit ID: [id number] 51y, F Weight: 95.7 kg Height/Length: 70 in BMI: 30.3 ALLERGIES: No Known Drug Allergy Start 21:04 02/11/2017 Kevin Obregon R.N., Stop 22:17 02/11/2017 Kevin Obregon R.N. Medication Administered: IV NS (SALINE), Dose: IV Fluids, Bolus: 1000 mL wide open, Dispensed: 1000 mL bag, Site: #1 left AC. Medication Ordered: IV NS : initial bolus 1000 mL (1000 mL/hr), then none - for X1 (NOW). Given 23:04 02/11/2017 Kevin Obregon R.N. Medication Administered: ZOFRAN [IVP] (ONDANSETRON HCL), Dose: 4 mg IVP over 2 minute(s), Site: #1 left AC. Medication Ordered: Zofran IV 4 mg (NOW). Given 23:04 02/11/2017 Kevin Obregon R.N. Medication Administered: FAMOTIDINE [PO], Dose: 20 mg Tablets PO. Medication Ordered: Famotidine PO 20 mg (NOW). Given 23:32 02/11/2017 Kevin Obregon R.N. Medication Administered: POTASSIUM CHLORIDE [PO] (POTASSIUM CHLORIDE ER), Dose: 60 meq Tablets PO. Medication Ordered: Potassium Chloride PO 60 meq (NOW). Start 23:48 02/11/2017 Kevin Obregon R.N. Medication Administered: INSULIN REG [IV DRIP], Dose: Drip IV over 8 hour(s), Rate: 8 unit/hr, Bolus: 8 unit over 1 minute(s), Dispensed: 100 mL bag, Site: #1 left AC. Medication Ordered: Insulin Reg Drip IV : initial bolus 8 units, then 8 units/hr for 8h (HIGH ALERT MEDICATION, NOW). Start 23:49 02/11/2017 Kevin Obregon R.N. Medication Administered: IV NS (SALINE), Dose: IV Fluids, Bolus: 1000 mL wide open, Dispensed: 1000 mL bag, Site: #1 left AC. Medication Ordered: IV NS : initial bolus 1000 mL (1000 mL/hr), then none - for X1 (NOW). Start 00:59 02/12/2017 Kevin Obregon R.N. Medication Administered: LEVAQUIN [IVPB] (LEVOFLOXACIN), Dose: 750 mg IVPB over 1 hour(s), Rate: 150 mL/hr, Dispensed: 150 mL bag, Site: #2 right AC. Medication Ordered: Levaquin IV 750 mg/150 mL (NOW). Given 01:21 02/12/2017 Kevin Obregon R.N. Medication Administered: MORPHINE [IVP], Dose: 4 mg IVP over 4 minute(s), Site: #1 left AC. Medication Ordered: Morphine IV 4 mg (NOW). Given 01:22 02/12/2017 Kevin Obregon R.N. Medication Administered: ZOFRAN [IVP] (ONDANSETRON HCL), Dose: 4 mg IVP over 2 minute(s), Site: #1 left AC. Medication Ordered: Zofran IV 4 mg (NOW). Given 01:35 02/12/2017 Kevin Obregon R.N. Medication Administered: SODIUM BICARBONATE [IVP], Dose: 100 meq IVP over 2 hour(s), Site: #1 left AC. Medication Ordered: Sodium Bicarbonate IV 100 meq (in 400 mls of D5W).
--- NOTE | 2017-02-15 17:11 | ED DISCHARGE INSTRUCTIONS ---
Patient: DAVID HUMPHREYS General Instructions [facility] VisitID: [id number] [address] [place] [place] [address] 51y, F Registration Date/Time: 02/11/2017 diabetic ketoacidosis, acute lactic acidosis, acute hyperthyroidism, acute acute kidney injury Acute lower back pain. (Electronically signed by Jj Devlin Dr. 02/15/2017 17:10)
--- NOTE | 2017-02-15 17:11 | ED DISCHARGE INSTRUCTIONS ---
Patient: DAVID HUMPHREYS General Instructions [facility] VisitID: [id number] [address] [place] [address] 51y, F Registration Date/Time: 02/11/2017 diabetic ketoacidosis, acute lactic acidosis, acute hyperthyroidism, acute acute kidney injury Acute lower back pain. (Electronically signed by Jj Devlin Dr. 02/15/2017 17:10)
--- NOTE | 2017-02-15 17:11 | ED MED RECONCILIATION SUMMARY ---
Patient: DAVID HUMPHREYS Medication Reconciliation Report [facility] VisitID: [id number] [address] [place] [address] 51y, F Registration Date/Time: 02/11/2017 Weight: 95.7 kg Height/Length: 70 in. BMI: 30.3 ALLERGIES: No Known Drug Allergy The patient's Home Medications are listed below: THE FOLLOWING MEDICATIONS NEED TO BE RECONCILED: Atenolol 50 mg BID Belviq 10 mg daily Belviq Oral Biotin 1000 mcg daily Bydureon Subcutaneous C-Biest cream 5 mg/ml daily Cinnamon 1000 mcg daily Gemfibrozil 600 mg BId Humalog 6-20 units when eating Invokana 300 mg daily Levothyroxine 125 mcg daily Liothyronine 5 mcg BID Losartan 100 mg daily Metformin ER 500 mg TID MetFORMIN HCl Oral Methyl guard Metoclopramide 5 mg BID NovoLOG Subcutaneous Pravastatin 40 mg daily Progesterone 200 mg daily Qunol 100 mg daily Stress B daily Tresbia Tresbia 76 units daily Tylenol Arthritis 650 mg QID Victoza 1.8 mg daily Vitamin D3 1000 IU daily The source(s) of the original Home Medication information: Not obtained. The following Medications were given to the patient in the Emergency Department: IV NS IV Fluids bolus 1000 mL wide open, administered: 02/11/2017 9:04:00 PM Zofran [IVP] IVP 4 mg, administered: 02/11/2017 11:04:00 PM Famotidine [PO] PO 20 mg, administered: 02/11/2017 11:04:00 PM Potassium Chloride [PO] PO 60 meq, administered: 02/11/2017 11:32:00 PM Insulin Reg [IV DRIP] Drip IV bolus 8 unit over 1 minute(s), then 8 unit/hr, administered: 02/11/2017 11:48:00 PM IV NS IV Fluids bolus 1000 mL wide open, administered: 02/11/2017 11:49:00 PM Morphine [IVP] IVP 4 mg, administered: 02/12/2017 1:21:00 AM Zofran [IVP] IVP 4 mg, administered: 02/12/2017 1:22:00 AM Levaquin [IVPB] IVPB bolus 0, then 750 mg 150 mL/hr, administered: 02/12/2017 12:59:00 AM Sodium Bicarbonate [IVP] IVP 100 meq, administered: 02/12/2017 1:35:00 AM The following Medications were prescribed to the patient: None.
--- NOTE | 2017-02-15 17:11 | ED MED RECONCILIATION SUMMARY ---
Patient: DAVID HUMPHREYS Medication Reconciliation Report [facility] VisitID: [id number] [address] [place] [address] 51y, F Registration Date/Time: 02/11/2017 Weight: 95.7 kg Height/Length: 70 in. BMI: 30.3 ALLERGIES: No Known Drug Allergy The patient's Home Medications are listed below: THE FOLLOWING MEDICATIONS NEED TO BE RECONCILED: Atenolol 50 mg BID Belviq 10 mg daily Belviq Oral Biotin 1000 mcg daily Bydureon Subcutaneous C-Biest cream 5 mg/ml daily Cinnamon 1000 mcg daily Gemfibrozil 600 mg BId Humalog 6-20 units when eating Invokana 300 mg daily Levothyroxine 125 mcg daily Liothyronine 5 mcg BID Losartan 100 mg daily Metformin ER 500 mg TID MetFORMIN HCl Oral Methyl guard Metoclopramide 5 mg BID NovoLOG Subcutaneous Pravastatin 40 mg daily Progesterone 200 mg daily Qunol 100 mg daily Stress B daily Tresbia Tresbia 76 units daily Tylenol Arthritis 650 mg QID Victoza 1.8 mg daily Vitamin D3 1000 IU daily The source(s) of the original Home Medication information: Not obtained. The following Medications were given to the patient in the Emergency Department: IV NS IV Fluids bolus 1000 mL wide open, administered: 02/11/2017 9:04:00 PM Zofran [IVP] IVP 4 mg, administered: 02/11/2017 11:04:00 PM Famotidine [PO] PO 20 mg, administered: 02/11/2017 11:04:00 PM Potassium Chloride [PO] PO 60 meq, administered: 02/11/2017 11:32:00 PM Insulin Reg [IV DRIP] Drip IV bolus 8 unit over 1 minute(s), then 8 unit/hr, administered: 02/11/2017 11:48:00 PM IV NS IV Fluids bolus 1000 mL wide open, administered: 02/11/2017 11:49:00 PM Morphine [IVP] IVP 4 mg, administered: 02/12/2017 1:21:00 AM Zofran [IVP] IVP 4 mg, administered: 02/12/2017 1:22:00 AM Levaquin [IVPB] IVPB bolus 0, then 750 mg 150 mL/hr, administered: 02/12/2017 12:59:00 AM Sodium Bicarbonate [IVP] IVP 100 meq, administered: 02/12/2017 1:35:00 AM The following Medications were prescribed to the patient: None.
--- NOTE | 2017-02-15 17:11 | ED MAR SUMMARY ---
..... Medication Administration Record [facility] [address] [place] [address] Patient: DAVID HUMPHREYS Visit ID: [id number] 51y, F Weight: 95.7 kg Height/Length: 70 in BMI: 30.3 ALLERGIES: No Known Drug Allergy Start 21:04 02/11/2017 Kevin Obregon R.N., Stop 22:17 02/11/2017 Kevin Obregon R.N. Medication Administered: IV NS (SALINE), Dose: IV Fluids, Bolus: 1000 mL wide open, Dispensed: 1000 mL bag, Site: #1 left AC. Medication Ordered: IV NS : initial bolus 1000 mL (1000 mL/hr), then none - for X1 (NOW). Given 23:04 02/11/2017 Kevin Obregon R.N. Medication Administered: ZOFRAN [IVP] (ONDANSETRON HCL), Dose: 4 mg IVP over 2 minute(s), Site: #1 left AC. Medication Ordered: Zofran IV 4 mg (NOW). Given 23:04 02/11/2017 Kevin Obregon R.N. Medication Administered: FAMOTIDINE [PO], Dose: 20 mg Tablets PO. Medication Ordered: Famotidine PO 20 mg (NOW). Given 23:32 02/11/2017 Kevin Obregon R.N. Medication Administered: POTASSIUM CHLORIDE [PO] (POTASSIUM CHLORIDE ER), Dose: 60 meq Tablets PO. Medication Ordered: Potassium Chloride PO 60 meq (NOW). Start 23:48 02/11/2017 Kevin Obregon R.N. Medication Administered: INSULIN REG [IV DRIP], Dose: Drip IV over 8 hour(s), Rate: 8 unit/hr, Bolus: 8 unit over 1 minute(s), Dispensed: 100 mL bag, Site: #1 left AC. Medication Ordered: Insulin Reg Drip IV : initial bolus 8 units, then 8 units/hr for 8h (HIGH ALERT MEDICATION, NOW). Start 23:49 02/11/2017 Kevin Obregon R.N. Medication Administered: IV NS (SALINE), Dose: IV Fluids, Bolus: 1000 mL wide open, Dispensed: 1000 mL bag, Site: #1 left AC. Medication Ordered: IV NS : initial bolus 1000 mL (1000 mL/hr), then none - for X1 (NOW). Start 00:59 02/12/2017 Kevin Obregon R.N. Medication Administered: LEVAQUIN [IVPB] (LEVOFLOXACIN), Dose: 750 mg IVPB over 1 hour(s), Rate: 150 mL/hr, Dispensed: 150 mL bag, Site: #2 right AC. Medication Ordered: Levaquin IV 750 mg/150 mL (NOW). Given 01:21 02/12/2017 Kevin Obregon R.N. Medication Administered: MORPHINE [IVP], Dose: 4 mg IVP over 4 minute(s), Site: #1 left AC. Medication Ordered: Morphine IV 4 mg (NOW). Given 01:22 02/12/2017 Kevin Obregon R.N. Medication Administered: ZOFRAN [IVP] (ONDANSETRON HCL), Dose: 4 mg IVP over 2 minute(s), Site: #1 left AC. Medication Ordered: Zofran IV 4 mg (NOW). Given 01:35 02/12/2017 Kevin Obregon R.N. Medication Administered: SODIUM BICARBONATE [IVP], Dose: 100 meq IVP over 2 hour(s), Site: #1 left AC. Medication Ordered: Sodium Bicarbonate IV 100 meq (in 400 mls of D5W).
== END 2017-02-15 17:35 | disposition home or self-care (01) | DRG 637 ==
LOC: ED SRH 20:16 → TRANS SRH 23:36 → CC SRH 23:36 → TRANS SRH 23:36 → CC SRH 02-12 02:23
PROVIDERS: ADMIT Internal Medicine
DX: E13.10 Other specified diabetes mellitus with ketoacidosis without coma (principal); T38.3X6A Underdosing of insulin and oral hypoglycemic [antidiabetic] drugs, initial encounter; Z91.138 Patient's unintentional underdosing of medication regimen for other reason; J18.9 Pneumonia, unspecified organism; N17.9 Acute kidney failure, unspecified; E86.0 Dehydration; E78.00 Pure hypercholesterolemia, unspecified; E05.90 Thyrotoxicosis, unspecified without thyrotoxic crisis or storm; I10 Essential (primary) hypertension; E87.6 Hypokalemia